=== PATIENT | female | born 1930 | race Caucasian/White ===

== ENCOUNTER 2018-03-13 04:53 | Inpatient (IN) | payer OTHER ==
[2018-02-27 08:11] VITALS: Ht 152.4 cm; Wt 84.6 kg
[2018-02-27 10:00] LABS: BASO % 0.4 %; BASO ABS # 0.03 K/uL (0-0.2); EOS % 2.1 %; EOS ABS # 0.17 K/uL (0-0.5); HEMATOCRIT 43.3 % (37-47); HEMOGLOBIN 14.8 g/dL (12.0-16.0); IG# 0.02 K/uL (0.00-0.02); LYMPH % 43.9 %; LYMPH ABS # 3.48 K/uL (1.2-3.4); MEAN CELL VOLUME 92.5 fL (80-100); MEAN CORPUSCULAR HEMOGLOBIN 31.6 pg (25-34); MEAN CORPUSCULAR HGB CONC 34.2 g/dl (32-36); MEAN PLATELET VOLUME 10.2 fL (7.4-10.4); MONO % 11.2 %; MONO ABS # 0.89 K/uL (0.11-0.59); NEUT % 42.1 %; NEUT ABS # 3.33 K/uL (1.4-6.5); PLATELET COUNT 207 K/uL (130-400); RED CELL DISTRIBUTION WIDTH SD 46.9 fL (36.4-46.3); WHITE BLOOD COUNT 7.92 K/uL (4.8-10.8)
[2018-02-27 10:09] LABS: ALBUMIN 4.1 gm/dl (3.4-5.0); CALCIUM 9.8 mg/dl (8.5-10.1); CREATININE 0.86 mg/dl (0.60-1.20); POTASSIUM 4.7 mmol/L (3.5-5.1)
[2018-02-27 10:29] LABS: HEMOGLOBIN A1C 6.2 % (4.5-5.6)
[2018-03-13] VITALS (10 sets, daily range): BP systolic 100–177; BP diastolic 59–94; PULSE 72–79; TEMP 36.4–36.7; O2SAT 94–98
[~2018-03-13] VITALS: Ht 152.4 cm; Wt 84.6 kg
[~2018-03-13 04:53] MED LIST: ASCA500 PO; CELE1CAP30 PO; CHOL2000 PO; CRS/10 PO; HYDR-3419 PO; LISI-787 PO; MAGN125C; MISCTAB78 PO; MULT-1027 PO; OMEG10007 PO; PRLSR20 PO; [UNRECOGNIZED DRUG - CODE] TOP
[2018-03-13] MEDS ORDERED: ROPIVACAINE 5MG/ML 30 ML 150 MG, BUPIVACAINE 0.5% MPF INJ 30 ML, EpINEphrine HCL INJ 0.... INFIL SCH ×8 (06:00)
[2018-03-13] MEDS: TRANEXAMIC ACID INJ 1,000 MG x 2 Bags IV SCH ×4 (06:00→06:30)
[2018-03-13] MEDS ORDERED: CEFAZOLIN 2000MG IV PUSH 15 ML IV SCH ×2 (06:00)
[2018-03-13] MEDS ORDERED: LACTATED RINGER'S 1000ML 500 ML IV SCH (06:00)
[2018-03-13] MEDS ORDERED: BUPIVACAINE 0.25% 30 ML VIAL ONE (06:20)
[2018-03-13] MEDS ORDERED: BACITRACIN 50000 UNIT VIAL ONE (06:27)
[2018-03-13] MEDS ORDERED: ORTHO JOINT ANESTHETIC ONE (06:27)
[2018-03-13] MEDS ORDERED: POVIDONE-IODINE OP SOLN 30 ML BTL ONE (06:27)
[2018-03-13] MEDS ORDERED: PHENYLEPHRINE 100MCG/ML 5ML SYR IV PRN (06:30)
[2018-03-13] MEDS ORDERED: FENTANYL CITRATE INJ 50 MCG/1 ML 2 ML VIAL IV PRN (06:30)
[2018-03-13] MEDS ORDERED: EpHEDrine SULFATE INJ 50 MG/ML AMP IV PRN (06:30)
[2018-03-13] MEDS ORDERED: ATROPINE SULFATE 0.1 MG/ML 5ML SYR IV PRN (06:30)
[2018-03-13] MEDS ORDERED: HYDROmorphone INJ 2 MG/ML SYR/VIAL IV PRN (06:30)
[2018-03-13] MEDS ORDERED: ONDANSETRON INJ 2 MG/ML 2 ML VIAL IV PRN ×2 (06:30→08:45)
[2018-03-13] MEDS ORDERED: FENTANYL CITRATE INJ 50 MCG/1 ML 2 ML VIAL ONE (06:43)
[2018-03-13] MEDS ORDERED: MIDAZOLAM HCL 1 MG/ML 2ML VIAL ONE (06:43)
[2018-03-13] MEDS ORDERED: PROPOFOL IV EMULSION 10 MG/ML 20 ML VIAL ONE ×2 (06:44→07:59)
[2018-03-13] MEDS ORDERED: ROPIVACAINE 0.5% 5 MG/ML 30 ML VIAL ONE (06:46)
--- NOTE | 2018-03-13 06:59 | History and Physical ---
History & Physical Date March 13, 2018. Chief Complaint Patient presents as a 88-year-old white female 5 185 pounds with complaints of ongoing pain through to her right knee she has been no response to conservative therapy including physical therapy anti-inflammatories relative rest injections viscous supplementations a presents for right total knee arthroplasty History of Present Illness The patient is a 88 year old female with complaints of ongoing pain interval to her right knee she presents with inability to ambulate pain awake pain at night pain with ambulating no braces help no injections given her any relief Additional History Hepatic Disease: No Endocrine Disorder: No Kidney Disease: No Hypertension: Yes Heart Disease: No Bleeding Tendencies: No Infectious Diseases: No Allergies Coded Allergies: Adhesives (Verified Allergy, Unknown, SKIN IRRITATION - REDNESS/ITCHY, 03/13) Latex1 -Allergic Contact Dermititis (Verified Allergy, Unknown, SKIN IRRITATION - REDNESS AND ITCHY, 03/13/18) Home Medications Scheduled Ascorbic Acid (Vitamin C), 1,000 MG PO QAM Celecoxib (Celecoxib), 1 CAP PO QAM Cholecalciferol (Vitamin D3), 1 CAP PO BID Fish Oil (Clawson-3), 1 CAP PO QAM Lisinopril/Hctz (Zestoretic 20MG/12.5MG), 1 TAB PO QAM Magnesium Citrate (mg Suppleme (Magnesium Citrate), Unknown Dose HS Misc Natural Products (Osteo Bi-Flex Advanced Do), 1 TAB PO BID Multiple Vitamin (Multi Vitamin), 1 TAB PO QAM Omeprazole (Prilosec), 20 MG PO QAM Rosuvastatin Calcium (Crestor), 10 MG PO Q2D Scheduled PRN Hydrocodon/Acetaminophen 5MG/300MG (Vicodin (5MG/300MG)), 1 TAB PO UD PRN for Pain Powders (Lady Anti Monkey Butt), 1 APPLN TOP UD PRN for PRN Physical Examination Skin: warm/dry, no rash Eyes: normal inspection, EOMI, sclerae normal ENT: normal ENT inspection, pharynx normal Head: normocephalic, atraumatic Neck: supple, no adenopathy, trachea midline Respiratory/Chest: lungs clear, normal breath sounds, no respiratory distress Cardiovascular: regular rate, rhythm, no edema, no murmur Abdomen / GI: normal bowel sounds, non tender Back: normal inspection Extremities: normal inspection, normal range of motion, + pertinent finding ( Patient has a medial joint line pain tenderness crepitation varus alignment range of motion 0-110 there are palpable osteophytes of the medial aspect of the knee moderate effusion is noted no ligamentous instability is noted) Neurologic/Psych: no motor/sensory deficits, alert, normal reflexes, oriented x 3 Diagnosis 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
--- NOTE | 2018-03-13 07:00 | History & Physical Bridge Note ---
H&P Re-Evaluation Bridge Note: I have examined the patient, reviewed the History & Physical and in the interval since the performance of the History & Physical I have noted the following changes of clinical significance: No changes noted
--- NOTE | 2018-03-13 07:55 | [facility] Post Operative Brief Note ---
Immediate Operative Summary Operative Date March 13, 2018. Pre-Operative Diagnosis Severe End-Stage Tricompartmental Degenerative Joint Disease Right Knee Post-Operative Diagnosis Severe End-Stage Tricompartmental Degenerative Joint Disease Right Knee Procedure(s) Performed Right Total Knee Arthroplasty utilizing Meza nephNomi journey 2 patient match total knee arthroplasty size 4 femur 3 tibia 13 polyethylene [address] Mo Education Administrative Assistant Surgeon(s) QUINTIN Craft Estimated Blood Loss 5 ml Findings Consistent with Post-Op Diagnosis Specimens A. Right Knee Bone and Tissue Anesthesia Type MAC Spinal Regional Complication(s) none Disposition Disposition: Recovery Room / PACU
--- NOTE | 2018-03-13 07:56 | [facility] Operative Report ---
Operative Report Operative Date March 13, 2018. Pre-Operative Diagnosis Severe End-Stage Tricompartmental Degenerative Joint Disease Right Knee Post-Operative Diagnosis Severe End-Stage Tricompartmental Degenerative Joint Disease Right Knee Procedure(s) Performed Right Total Knee Arthroplasty utilizing Wiziva [facility] 2 patient match total knee arthroplasty size 4 femur 3 tibia 13 polyethylene [address] Mo Tentmaker Surgeon(s) QUINTIN Craft Estimated Blood Loss 5 ml Findings *Surgery findings included subchondral sclerosis cystic changes and osteophytes bone to bone eburnated bone varus alignment salute ligament ligamentous laxity with end-stage DJD Specimens A. Right Knee Bone and Tissue Anesthesia Type MAC Spinal Regional Complication(s) none Disposition Recovery Room / PACU Indications Patient presents after failed attempts at conservative management and physical therapy anti-inflammatories relative rest activity modification corticosteroid injections time bracing no no relief patient presents for total knee arthroplasty Description of Procedure After proper prepping and draping of the Right lower extremity anterior midline incision was made over the region of the extensor extensor mechanism after meticulous hemostasis was obtained and maintained in subcutaneous tissues a medial parapatellar incision was made The patella was subluxed lateralward the medial lateral gutter were cleaned from any hypertrophic synovitis and scar tissue of the distal femoral block was placed and the distal femoral osteotomy cut was made subsequently the chamfers anterior and posterior osteotomy cuts were made utilizing the 4-in-1 block the tibia was subsequently subluxed anteriorward medial and ateral meniscal remnants were excised in their entirety remnants of the anterior and posterior cruciate ligaments were excised in their entirety excellent exposure of the proximal tibia was obtained the tibial osteotomy guide was placed on the proximal tibial osteotomy cut was made once again the knee was irrigated with copious amounts of sterile saline solution the patella was subsequently everted lateralward thickened scar tissue around the patella was removed the patella was subsequently cut utilizing a freehand technique and was drilled prepared for final preparation and placement of patella socially flexion-extension gaps were checked and the equal and symmetric trials were placed to the appropriate femoral and tibial trials with poly-spacer being placed for equal flexion and extension gaps and full range of motion including extension to 0 and flexion to 140 the trial components after having been taken to recovery range of motion was subsequently removed meticulous hemostasis was obtained and maintained subsequently a knee block injection of joint cocktail including ropivacaine 0.5% 150 mg. Bupivacaine 0.5 % epinephrine 1-200,030 mL's toradol 30 mg dexamethasone 4 mg ketamine 10 mg clonidine 100 micrograms normal saline solution 30 mg was infiltrated into the soft tissues of the posterior knee medial lateral gutters and periosteal synovium special attention was paid to protect neurovascular structures at all times subsequently trial components having been removed the knee was irrigated with sterile saline solution. debris was removed the proximal tibia was subsequently prepared and was made ready for the placement of the tibial component tibial component was also cemented and tamped into position the femoral component was subsequently placed and cemented in the position the patellar component was subsequently cemented in position because hemostasis once again obtained and maintained wound having been thoroughly irrigated with debridement and debridement lavage was performed as well as a medial parapatellar incision closed with #1 Vicryl in interrupted fashion subcutaneous was closed with #2 Vicryl skin was closed with skin clips. PA-C was necessary for prepping and drapping as well as wound closure of deep fascia Sub cutaneous tissue and skin and was necessary for the case. A sterile compressive dressing was placed patient was taken to recovery in stable condition of report dictated by Chepe I attest to the content of the Intraoperative Record and any orders documented therein. Any exceptions are noted below. I attest to the content of the Intraoperative Record and any orders documented therein. Any exceptions are noted below.
[2018-03-13] MEDS ORDERED: EpHEDrine SULFATE 50MG/5ML SYR ONE (07:59)
[2018-03-13] MEDS ORDERED: PHENYLEPHRINE 100MCG/ML 5ML SYR ONE (07:59)
[2018-03-13] MEDS ORDERED: KETOROLAC TROMETHAMINE 15 MG/ML VIAL IV. PRN (08:45)
[2018-03-13] MEDS ORDERED: ALUMINUM/MAGNESIUM/SIMETH (MAALOX MAX) 30 ML UDC PO PRN (08:45)
[2018-03-13] MEDS ORDERED: TRAMADOL HCL 50 MG TAB PO PRN (08:45)
[2018-03-13] MEDS ORDERED: MAGNESIUM HYDROXIDE SUSP 30 ML UDC PO PRN (08:45)
[2018-03-13] MEDS ORDERED: BISACODYL 10 MG SUPP PR PRN (08:45)
[2018-03-13] MEDS ORDERED: MoRPHine SULFATE 4 MG/ML 1 ML CARP\\VIAL IV PRN (08:45)
[2018-03-13] MEDS ORDERED: SOD PHOSPHATE/SOD BIPHOSPHATE ENEMA 132 ML BTL PR PRN (08:45)
--- NOTE | 2018-03-13 09:10 | DIAGNOSTIC IMAGING REPORT ---
R KNEE 1 OR 2 VIEWS ROUTINE CLINICAL HISTORY: Right knee osteoarthritis. COMPARISON: None FINDINGS: Alignment of the total right knee arthroplasty is anatomic. There is no fracture or unexpected radiopaque foreign body. Surgical drains are in place. IMPRESSION: Expected findings following total right knee arthroplasty. Electronically signed by: Rene Haddad M.D. 03/13/2018 9:09 AM Dictated Date/Time: 03/13/2018 9:07 AM
--- NOTE | 2018-03-13 09:41 | Anesthesiology Progress Note ---
Anesthesia Post Op Note Date & Time March 13, 2018 at 09:41 Vital Signs Pain Intensity: 0 Vital Signs Past 12 Hours Date Time Temp Pulse Resp B/P (MAP) Pulse Ox O2 Delivery O2 Flow Rate FiO2 03/13/18 09:30 75 20 121/66 98 Nasal Cannula 3 03/13/18 09:15 75 20 115/59 99 Nasal Cannula 3 03/13/18 09:05 36.1 80 18 113/63 96 Nasal Cannula 3 03/13/18 08:55 77 18 112/56 97 Nasal Cannula 3 03/13/18 08:45 82 18 101/60 95 Oxymask 3 03/13/18 08:35 36.0 88 16 103/56 99 Oxymask 5 03/13/18 06:01 36.4 79 20 177/94 95 Room Air Notes Mental Status: alert / awake / arousable, participated in evaluation Pt Amnestic to Procedure: Yes Nausea / Vomiting: adequately controlled Pain: adequately controlled Airway Patency, RR, SpO2: stable & adequate BP & HR: stable & adequate Hydration State: stable & adequate Neuraxial Anesthesia: was administered, sensory block is resolving Anesthetic Complications: no major complications apparent
[2018-03-13] MEDS ORDERED: MoRPHine SULFATE 10 MG/ML CARP/VIAL IV PRN (10:30)
[2018-03-13] MEDS: PANTOprazole SOD 40 MG TAB PO SCH (10:30)
[2018-03-13] MEDS: D5W AND 1/2NSS + 20MEQ KCL 1,000 ML IV SCH ×2 (10:41→21:32)
[2018-03-13] MEDS: MULTIVITAMIN TAB PO SCH (10:58)
[2018-03-13] MEDS: LISINOPRIL/HCTZ 20/12.5MG TAB PO SCH (11:00)
[2018-03-13] MEDS: CEFAZOLIN IV 2,000 MG in SYRINGE 0 ML IV SCH ×2 (15:01→22:41)
[2018-03-13] MEDS: HYDROCODONE/ACETAMIN 5/325MG TAB PO PRN (21:30)
[2018-03-13] MEDS: SENNA 8.6 MG TAB PO SCH (21:32)
[2018-03-13] MEDS: CHOLECALCIFEROL 1000 INTER.UNIT TAB PO SCH (21:33)
[2018-03-13] MEDS: DOCUSATE SODIUM 100 MG CAP PO SCH (21:33)
[2018-03-13] MEDS: ASPIRIN 81 MG ECTAB PO SCH (21:34)
[2018-03-14 03:27] VITALS: BP 108/67; PULSE 64; TEMP 36.7; O2SAT 94
[2018-03-14 08:08] VITALS: BP 126/70; PULSE 65; TEMP 36.7; O2SAT 96
[2018-03-14 08:08] LABS: HEMOGLOBIN 11.1 g/dL (12.0-16.0); MEAN CELL VOLUME 91.7 fL (80-100); MEAN CORPUSCULAR HEMOGLOBIN 30.8 pg (25-34); MEAN CORPUSCULAR HGB CONC 33.6 g/dl (32-36); MEAN PLATELET VOLUME 9.8 fL (7.4-10.4); PLATELET COUNT 165 K/uL (130-400); RED CELL DISTRIBUTION WIDTH CV 13.9 % (11.5-14.5); RED CELL DISTRIBUTION WIDTH SD 46.3 fL (36.4-46.3); WHITE BLOOD COUNT 10.37 K/uL (4.8-10.8)
--- NOTE | 2018-03-14 08:08 | Orthopedic Progress Note ---
Orthopedic Progress Note Date of Service March 14, 2018. Subjective Post OP Day: 1 Reports: feeling well, Denies: chest pain, SOB, nausea / vomiting, light headedness, calf pain Objective calves soft nontender, N/V intact, capillary refill less than 2 sec., dressing C /D/I, A&O x3, toes mobile, hemovac drainage (250/75 cc per shift) Date Time Temp Pulse Resp B/P (MAP) Pulse Ox O2 Delivery O2 Flow Rate FiO2 03/14/18 03:27 36.7 64 14 108/67 (81) 94 Room Air 03/14/18 00:00 Room Air 03/13/18 23:01 36.7 72 16 110/69 (83) 95 Room Air 03/13/18 21:05 36.7 79 18 110/73 (85) 94 Room Air 03/13/18 16:00 96 Room Air 03/13/18 15:30 Nasal Cannula 2.0 03/13/18 15:20 36.7 77 18 135/75 (95) 97 Nasal Cannula 2.0 03/13/18 12:50 72 18 117/70 (86) 98 03/13/18 11:50 74 18 108/67 (81) 97 03/13/18 10:56 78 18 100/59 (73) 97 03/13/18 10:18 74 18 124/70 (88) 98 2.0 03/13/18 09:50 36.5 78 18 116/70 (85) 97 Nasal Cannula 2.0 03/13/18 09:50 Nasal Cannula 2.0 03/13/18 09:50 36.5 78 18 116/70 (85) 97 Nasal Cannula 2.0 03/13/18 09:50 97 Nasal Cannula 2.0 03/13/18 09:30 75 20 121/66 98 Nasal Cannula 3 03/13/18 09:15 75 20 115/59 99 Nasal Cannula 3 03/13/18 09:05 36.1 80 18 113/63 96 Nasal Cannula 3 03/13/18 08:55 77 18 112/56 97 Nasal Cannula 3 03/13/18 08:45 82 18 101/60 95 Oxymask 3 03/13/18 08:35 36.0 88 16 103/56 99 Oxymask 5 Laboratory Results 24 Hours: Test 03/14/18 07:50 Assessment & Plan Assessment: POD#1 SP RIGHT TKA Plan: PT/OT DVT PROPH- ASA 81MG BID PAIN MANAGEMENT- NORCO, TRAMADOL DC PLANNING- PATIENT REQUESTING REFERRAL HSNV, SNF BACK UP. HOPEFUL TRANSFER TOMORROW IF STABLE. Inhouse Planning Pain Management: Celebrex, Ultram, [place] DVT Prophylaxis: TEDs, SCDs, ASA Discharge Planning Discharge Planning: rehab hospital
[2018-03-14] MEDS: HYDROCODONE/ACETAMIN 5/325MG TAB PO PRN ×2 (08:29→21:05)
[2018-03-14] MEDS: LISINOPRIL/HCTZ 20/12.5MG TAB PO SCH (08:30)
[2018-03-14] MEDS: CHOLECALCIFEROL 1000 INTER.UNIT TAB PO SCH ×2 (08:30→21:00)
[2018-03-14] MEDS: PANTOprazole SOD 40 MG TAB PO SCH (08:30)
[2018-03-14] MEDS: ASPIRIN 81 MG ECTAB PO SCH ×2 (08:30→21:06)
[2018-03-14] MEDS: MULTIVITAMIN TAB PO SCH (08:30)
[2018-03-14] MEDS: DOCUSATE SODIUM 100 MG CAP PO SCH ×2 (08:30→21:04)
[2018-03-14 08:41] LABS: CALCIUM 8.1 mg/dl (8.5-10.1); CREATININE 0.79 mg/dl (0.60-1.20); POTASSIUM 4.4 mmol/L (3.5-5.1)
[2018-03-14] MEDS: D5W AND 1/2NSS + 20MEQ KCL 1,000 ML IV SCH (09:30)
[2018-03-14 13:30] VITALS: BP 136/72; PULSE 73; TEMP 36.5; O2SAT 98
[2018-03-14 14:45] VITALS: BP 118/68; PULSE 71; TEMP 36.8; O2SAT 97
[2018-03-14] MEDS: CeleBREX 200 MG CAP PO SCH (21:05)
[2018-03-14] MEDS: SENNA 8.6 MG TAB PO SCH (21:06)
[2018-03-14] MEDS: ROSUVASTATIN CALCIUM 10 MG TAB PO SCH (21:06)
[2018-03-14 22:57] VITALS: BP 153/77; PULSE 73; TEMP 36.8; O2SAT 97
[2018-03-14 23:40] VITALS: O2SAT 97
[2018-03-15] MEDS: HYDROCODONE/ACETAMIN 5/325MG TAB PO PRN ×3 (06:09→20:56)
--- NOTE | 2018-03-15 06:48 | Orthopedic Progress Note ---
Orthopedic Progress Note Date of Service March 15, 2018. Subjective Post OP Day: 2 Reports: feeling well, nausea / vomiting, pain controlled w PO medications, Denies: complaints, chest pain, SOB, light headedness, calf pain Additional Notes: c/o episodes of nausea that seems related to her pain Objective calves soft nontender, N/V intact, capillary refill less than 2 sec., dressing C /D/I, A&O x3, toes mobile Date Time Temp Pulse Resp B/P (MAP) Pulse Ox O2 Delivery O2 Flow Rate FiO2 03/14/18 23:40 97 Room Air 2.0 03/14/18 22:57 36.8 73 14 153/77 (102) 97 Room Air 03/14/18 16:15 Room Air 03/14/18 14:45 36.8 71 18 118/68 (85) 97 Room Air 03/14/18 13:30 36.5 73 16 136/72 (93) 98 Room Air 03/14/18 08:08 36.7 65 16 126/70 (88) 96 Room Air 03/14/18 08:00 Room Air Laboratory Results 24 Hours: Test 03/14/18 07:50 Hematocrit 33.0 % Hemoglobin 11.1 g/dL Prothromb Time International Ratio 1.0 Prothrombin Time 10.7 SECONDS Assessment & Plan Assessment: POD#2 SP RIGHT TKA Plan: PT/OT DVT PROPH- ASA 81MG BID PAIN MANAGEMENT- [facility]CO, TRAMADOL DC PLANNING- PATIENT REQUESTING REFERRAL HSNV, SNF BACK UP. will check later today with CM to check approval Discharge Planning Discharge Planning: rehab hospital, uncertain DVT Prophylaxis: TEDs, SCDs, ASA Therapy: Physical Therapy
--- NOTE | 2018-03-15 06:50 | Discharge Instructions ---
Discharge Instructions Date of Service March 15, 2018. Admission Reason for Admission: Right Knee Osteoarthritis Discharge Discharge Diagnosis / Problem: right total knee replacement Discharge Goals Goal(s): Decrease discomfort, Improve function, Increase independence Activity Recommendations Activity Level: Up Ad Jaclyn Therapies: Physical Therapy, Weight Bearing Status Weightbearing Status: Right weightbearing (as tolerated) . Additional Information Patient informed of condition: Yes Advance Directives: No DNR: No Level of Care: Acute Rehab Communicable Disease: No Prognosis: Stable Instructions / Follow-Up Instructions / Follow-Up ACTIVITY RECOMMENDATIONS: SELF CARE INSTRUCTIONS AFTER TOTAL KNEE REPLACEMENT A. You may need to continue a physical therapy program after discharge from the hospital. There are several options available to you. Your doctor will assist you in selecting the best one for you. 1. An out-patient facility 2 to 3 times a week for therapy or home therapy. 2. Continue working on all exercises taught to you in the hospital. Your goals should be to increase bending of your knee to 90 degrees and beyond and to fully straighten your knee. B. You may progress at your own pace from walking with a walker or crutches to a cane; then to no assistive devices. C. Make walking a part of your daily routine. Be up as much as comfortable with rest periods throughout the day. Rest with leg elevation is very important. Use the ice wrap frequently for the first 3-4 weeks. D. There are no restrictions on activities. You may ride in a car, shop, participate in drag out man and all social activities. E. Wear the long elastic stockings (DEVEN hose) 20 hours a day for 2 weeks after surgery. They can be removed several times a day for laundering and for a bath. F. You may shower, no tub baths until cleared by your doctor. SPECIAL CARE INSTRUCTIONS: VERY IMPORTANT TO READ AND REVIEW A. There are a few signs you need to watch for after you are home. Call [facility] if you notice any of the followin. Increased severe knee pain. Some pain is expected especially when you exercise. 2. Increased swelling in your leg or knee; pain or swelling of the calf muscle in either lower leg. 3. Any fluid drainage from the incision. 4. Shortness of breath or chest pain. B. Please call [facility] at if you have any concerns or questions about your operation or recovery. The doctor or his nurse will return your call promptly. C. You must take antibiotics before dental work, bladder, bowel or other surgery. Your doctor will provide you with a permanent care to carry describing this precaution. IMPORTANT: * REMEMBER TO TAKE ASPIRIN, 81 MG, TWICE DAILY FOR 4 WEEKS UNLESS OTHERWISE DIRECTED. THIS IS YOUR BLOOD THINNER. * HIGH RISK PATIENTS MAY BE PRESCRIBED A STRONGER BLOOD THINNER. THIS WILL BE PROVIDED AT DISCHARGE. * CALL IF INCREASED PAIN, REDNESS, DRAINAGE OR FEVER GREATER THAT 101. * WEAR DEVEN HOSE 20 HOURS PER DAY FOR 2 WEEKS. * DERMABOND Prineo- This is a mesh tape dressing that is covered with glue. It should remain in place until the incision is properly healed, usually 10-14 days. This dressing is designed to naturally slough off. You may trim the excess mesh tape as it peels off. Incision may be briefly wet in a shower. Dry immediately by blotting with a clean, dry towel. Do not bath or swim until instructed by your doctor. Do not scratch, rub, or pick at the dressing. Do not apply any topical ointments or lotions until dressing is completely removed and/or instructed by your doctor. There may be a small piece of suture material at one end of your incision. Do not pull or trim this. If it is bothersome or catching on clothing, you may cover it with a band-aid. FOLLOW UP VISIT: If appointment is not already scheduled: Please call [facility] to make a follow-up appointment for 2 weeks after your surgery at . Current Hospital Diet Patient's current hospital diet: Regular Diet Discharge Diet Recommended Diet: Regular Diet Procedures Procedures Performed: Right Total Knee Arthroplasty utilizing Meza nephLiveroof [place] journey 2 patient match total knee arthroplasty size 4 femur 3 tibia 13 polyethylene 32 oval patella Pending Studies Studies pending at discharge: no Laboratory Results Hemoglobin A1c Test 02/27/18 09:10 Range/Units Estimated Average Glucose 131 mg/dl Hemoglobin A1c 6.2 H 4.5-5.6 % Medical Emergencies . Who to Call and When: Medical Emergencies: If at any time you feel your situation is an emergency, please call 911 immediately. . Non-Emergent Contact Non-Emergency issues call your: Primary Care Provider, Surgeon . . "Provider Documentation" section prepared by Chalino Fenton. . Core Measure Problem Core Measures: None [place] Drug Monitoring Program Search Results: patient reviewed within database, no issues identified
[2018-03-15] MEDS ORDERED: CLB200 PO (06:55)
[2018-03-15] MEDS ORDERED: ASPI-320 PO (06:55)
[2018-03-15] MEDS ORDERED: ONDA-170 PO (06:55)
[2018-03-15] MEDS ORDERED: HYDR-5688 PO (06:55)
[2018-03-15] MEDS ORDERED: CLC100 PO (06:55)
[2018-03-15 07:34] VITALS: BP 123/73; PULSE 67; TEMP 36.8; O2SAT 95
[2018-03-15] MEDS: CeleBREX 200 MG CAP PO SCH ×2 (08:47→20:56)
[2018-03-15] MEDS: ASPIRIN 81 MG ECTAB PO SCH ×2 (08:47→20:56)
[2018-03-15] MEDS: LISINOPRIL/HCTZ 20/12.5MG TAB PO SCH (08:47)
[2018-03-15] MEDS: DOCUSATE SODIUM 100 MG CAP PO SCH ×2 (09:31→20:56)
[2018-03-15] MEDS: PANTOprazole SOD 40 MG TAB PO SCH (09:31)
[2018-03-15] MEDS: MULTIVITAMIN TAB PO SCH (09:31)
[2018-03-15] MEDS: CHOLECALCIFEROL 1000 INTER.UNIT TAB PO SCH ×2 (09:59→20:56)
[2018-03-15 14:40] VITALS: BP 154/78; PULSE 69
[2018-03-15 15:41] VITALS: BP 144/63; PULSE 76; TEMP 36.7; O2SAT 94
[2018-03-15] MEDS: SENNA 8.6 MG TAB PO SCH (20:56)
[2018-03-15 23:54] VITALS: BP 145/67; PULSE 71; TEMP 36.6; O2SAT 93
--- NOTE | 2018-03-16 08:31 | Orthopedic Progress Note ---
Orthopedic Progress Note Date of Service March 16, 2018. Subjective Post OP Day: 3 Reports: feeling well, Denies: chest pain, SOB, nausea / vomiting, light headedness, calf pain Objective calves soft nontender, N/V intact, capillary refill less than 2 sec., dressing C /D/I, A&O x3, toes mobile Date Time Temp Pulse Resp B/P (MAP) Pulse Ox O2 Delivery O2 Flow Rate FiO2 03/16/18 00:15 Room Air 03/15/18 23:54 36.6 71 15 145/67 (93) 93 Room Air 03/15/18 16:15 Room Air 03/15/18 15:41 36.7 76 18 144/63 (90) 94 Room Air 03/15/18 14:40 69 Assessment & Plan Assessment: POD#3 SP RIGHT TKA Plan: PT/OT DVT PROPH- ASA 81MG BID PAIN MANAGEMENT- [facility], TRAMADOL DC PLANNING- PATIENT REQUESTING REFERRAL HSNV, SNF BACK UP. will check later today with CM to check approval STABLE FOR TRANSFER TODAY. AWAITING ON BED AVAILABILITY AND INSURANCE APPROVAL. Inhouse Planning Pain Management: Celebrex, Ultram, [place] DVT Prophylaxis: TEDs, SCDs, ASA Discharge Planning Discharge Planning: rehab hospital, uncertain DVT Prophylaxis: TEDs, SCDs, ASA Therapy: Physical Therapy
[2018-03-16] MEDS: HYDROCODONE/ACETAMIN 5/325MG TAB PO PRN (09:15)
[2018-03-16] MEDS: CHOLECALCIFEROL 1000 INTER.UNIT TAB PO SCH ×2 (09:16→20:34)
[2018-03-16] MEDS: PANTOprazole SOD 40 MG TAB PO SCH (09:16)
[2018-03-16] MEDS: MULTIVITAMIN TAB PO SCH (09:16)
[2018-03-16] MEDS: DOCUSATE SODIUM 100 MG CAP PO SCH ×2 (09:16→20:34)
[2018-03-16] MEDS: ASPIRIN 81 MG ECTAB PO SCH ×2 (09:17→20:34)
[2018-03-16 09:19] VITALS: BP 116/67; PULSE 80; TEMP 36.7; O2SAT 93
[2018-03-16] MEDS: LISINOPRIL/HCTZ 20/12.5MG TAB PO SCH (09:20)
[2018-03-16] MEDS: CeleBREX 200 MG CAP PO SCH ×2 (09:21→20:33)
[2018-03-16 09:53] VITALS: BP 158/82; PULSE 78
[2018-03-16 15:27] VITALS: BP 103/63; PULSE 80; TEMP 36.7; O2SAT 92
[2018-03-16] MEDS: ROSUVASTATIN CALCIUM 10 MG TAB PO SCH (20:34)
[2018-03-16] MEDS: SENNA 8.6 MG TAB PO SCH (20:34)
[2018-03-16 23:37] VITALS: BP 95/55; PULSE 72; TEMP 36.7; O2SAT 93
[2018-03-17 07:02] VITALS: BP 119/71; PULSE 75; TEMP 36.9; O2SAT 95
[2018-03-17] MEDS: HYDROCODONE/ACETAMIN 5/325MG TAB PO PRN ×2 (08:37→23:32)
[2018-03-17] MEDS: CeleBREX 200 MG CAP PO SCH ×2 (08:38→20:39)
[2018-03-17] MEDS: ASPIRIN 81 MG ECTAB PO SCH ×2 (08:38→20:39)
[2018-03-17] MEDS: DOCUSATE SODIUM 100 MG CAP PO SCH ×2 (08:38→20:38)
--- NOTE | 2018-03-17 08:38 | Orthopedic Progress Note ---
Orthopedic Progress Note Date of Service March 17, 2018. Subjective Post OP Day: 4 Reports: feeling well, Denies: chest pain, SOB, nausea / vomiting, light headedness, calf pain Objective calves soft nontender, N/V intact, capillary refill less than 2 sec., incision C /D/I, A&O x3, toes mobile Date Time Temp Pulse Resp B/P (MAP) Pulse Ox O2 Delivery O2 Flow Rate FiO2 03/17/18 07:02 36.9 75 18 119/71 (87) 95 Room Air 03/16/18 23:37 36.7 72 16 95/55 (68) 93 Room Air 03/16/18 20:06 Room Air 03/16/18 15:27 36.7 80 18 103/63 (76) 92 Room Air 03/16/18 15:15 Room Air 03/16/18 09:53 78 03/16/18 09:19 36.7 80 16 116/67 (83) 93 Room Air Assessment & Plan Assessment: POD#4 SP RIGHT TKA Plan: PT/OT DVT PROPH- ASA 81MG BID PAIN MANAGEMENT- NORCO, TRAMADOL DC PLANNING- PATIENT REQUESTING REFERRAL HSNV, SNF BACK UP. will check later today with CM to check approval STABLE FOR TRANSFER TODAY. AWAITING ON BED AVAILABILITY AND INSURANCE APPROVAL. Inhouse Planning Pain Management: Celebrex, Ultram, [place] DVT Prophylaxis: TEDs, SCDs, ASA Discharge Planning Discharge Planning: rehab hospital, uncertain DVT Prophylaxis: TEDs, SCDs, ASA Therapy: Physical Therapy
[2018-03-17] MEDS: PANTOprazole SOD 40 MG TAB PO SCH (08:39)
[2018-03-17] MEDS: MULTIVITAMIN TAB PO SCH (08:39)
[2018-03-17] MEDS: CHOLECALCIFEROL 1000 INTER.UNIT TAB PO SCH ×2 (08:39→20:38)
[2018-03-17 08:40] VITALS: BP 106/61; PULSE 81
[2018-03-17] MEDS: LISINOPRIL/HCTZ 20/12.5MG TAB PO SCH (08:42)
[2018-03-17 15:07] VITALS: BP 112/64; PULSE 80; TEMP 36.6; O2SAT 96
[2018-03-17] MEDS: SENNA 8.6 MG TAB PO SCH (20:38)
[2018-03-17 23:20] VITALS: BP 109/63; PULSE 73; TEMP 36.9; O2SAT 95
[2018-03-18 06:50] VITALS: BP 116/69; PULSE 70; TEMP 36.8; O2SAT 96
--- NOTE | 2018-03-18 07:33 | Orthopedic Progress Note ---
Orthopedic Progress Note Date of Service March 18, 2018. Subjective Post OP Day: 5 Reports: feeling well, Denies: chest pain, SOB, nausea / vomiting, light headedness, calf pain Objective calves soft nontender, N/V intact, capillary refill less than 2 sec., incision C /D/I, A&O x3, toes mobile Date Time Temp Pulse Resp B/P (MAP) Pulse Ox O2 Delivery O2 Flow Rate FiO2 03/18/18 06:50 36.8 70 16 116/69 (85) 96 Room Air 03/17/18 23:23 Room Air 03/17/18 23:20 36.9 73 16 109/63 (78) 95 Room Air 03/17/18 15:20 Room Air 03/17/18 15:07 36.6 80 18 112/64 (80) 96 Room Air 03/17/18 08:40 81 106/61 (76) 03/17/18 07:45 Room Air Assessment & Plan Assessment: POD#5 SP RIGHT TKA Plan: PT/OT DVT PROPH- ASA 81MG BID PAIN MANAGEMENT- NORCO, TRAMADOL DC PLANNING- PATIENT REQUESTING REFERRAL HSNV, SNF BACK UP. will check later today with CM to check approval STABLE FOR TRANSFER TODAY. AWAITING ON BED AVAILABILITY AND INSURANCE APPROVAL. IF STILL NO BEDS, MAY NEED TO CONSIDER OTHER OPTIONS. OTHER FACILITIES VS . Inhouse Planning Pain Management: Celebrex, Ultram, [place] DVT Prophylaxis: TEDs, SCDs, ASA Discharge Planning Discharge Planning: rehab hospital, uncertain DVT Prophylaxis: TEDs, SCDs, ASA Therapy: Physical Therapy
[2018-03-18] MEDS: CeleBREX 200 MG CAP PO SCH (08:09)
[2018-03-18] MEDS: ASPIRIN 81 MG ECTAB PO SCH (08:09)
[2018-03-18] MEDS: DOCUSATE SODIUM 100 MG CAP PO SCH (08:09)
[2018-03-18] MEDS: MULTIVITAMIN TAB PO SCH (08:09)
[2018-03-18] MEDS: CHOLECALCIFEROL 1000 INTER.UNIT TAB PO SCH (08:10)
[2018-03-18] MEDS: LISINOPRIL/HCTZ 20/12.5MG TAB PO SCH (08:10)
[2018-03-18] MEDS: HYDROCODONE/ACETAMIN 5/325MG TAB PO PRN (08:13)
[2018-03-18 09:46] VITALS: BP 116/69; PULSE 70; TEMP 36.8; O2SAT 96
--- NOTE | 2018-03-18 15:54 | Discharge Summary ---
Orthopedic Discharge Summary Admission Date/Reason March 13, 2018 at 06:40 Right Knee Osteoarthritis. Discharge Date/Disposition March 16, 2018 [facility] facility Diagnosis Principal Diagnosis: right knee osteoarthritis Procedure(s) Performed Right Total Knee Arthroplasty utilizing Derrick rendon 2 patient match total knee arthroplasty size 4 femur 3 tibia 13 polyethylene 32 oval patella Consultations NONE Medication Reconciliation New Medications: Ondansetron Hcl (Zofran) 8 Mg Tab 8 MG PO Q8 PRN for Nausea, #20 TAB Aspirin (Aspirin EC Low Dose) 81 Mg Ectab 81 MG PO BID for 30 Days, #60 TAB Celecoxib (Celebrex) 200 Mg Cap 200 MG PO BID for 30 Days, #60 CAP Docusate Sodium (Docusate Sodium) 100 Mg Cap 100 MG PO BID for 10 Days, #20 CAP Hydrocodone/Acetaminophen 5MG/325MG ([place] 5MG/325MG) Tab 1-2 TAB PO Q4H PRN for Pain, #60 TAB PRN PAIN Continued Medications: Ascorbic Acid (Vitamin C) 500 Mg Tab 1000 MG PO QAM PT REPORTS TAKES CHEWABLES Cholecalciferol (Vitamin D3) 2,000 Unit Cap 1 CAP PO BID for 90 Days, #180 CAP 3 Refills Lisinopril/Hctz (Zestoretic 20MG/12.5MG) Tab 1 TAB PO QAM, TAB Magnesium Citrate (mg Suppleme (Magnesium Citrate) Unknown Strength Cap Unknown Dose HS Multiple Vitamin (Multi Vitamin) 1 Tab Tab 1 TAB PO QAM Omeprazole (Prilosec) 20 Mg Capcr 20 MG PO QAM, CAP Powders (Lady Anti Monkey Butt) 1 Pow Pow 1 APPLN TOP UD PRN for PRN Rosuvastatin Calcium (Crestor) 10 Mg Tab 10 MG PO Q2D, TAB TAKES AT HS EVERY OTHER DAY Discontinued Medications: Celecoxib (Celecoxib) 200 Mg Cap 1 CAP PO QAM Fish Oil ([place]-3) 1 Ea Cap 1 CAP PO QAM, CAP Hydrocodon/Acetaminophen 5MG/300MG (Vicodin (5MG/300MG)) 1 Tab Tab 1 TAB PO UD PRN for Pain, TAB DOSE ON PT MED LIST READS 5-325 MG Misc Natural Products (Osteo Bi-Flex Advanced Do) 1 Tab Tab 1 TAB PO BID PT MED LIST READS THIS IS WITH TUMERIC IN IT Admission Physical Exam As per Admitting History & Physical. Hospital Course Patient was a same day admission after undergoing a successful right TKA. She tolerated the procedure well. Post-operatively, her activity was progressed and well tolerated. Please refer to daily progress notes and PT notes for complete details. After exam on 03/18/18, patient felt to be stable for discharge to [facility] facility. she remained in the hospital until POD #5 due to awaiting placement. Patient will f/u in the office in 2 weeks for further evaluation including x-rays and incision check, sooner if having any issues or concerns. Below are pertinent labs/studies during their hospital stay: Last Resulted CBC 03/14/18 07:50 Last Resulted BMP 03/14/18 07:50 Last Vital Signs Documentation Date Time Temp Pulse Resp B/P (MAP) Pulse Ox O2 Delivery O2 Flow Rate FiO2 03/18/18 09:46 36.8 70 16 96 Room Air 03/18/18 06:50 116/69 (85) 03/14/18 23:40 2.0 Discharge Instructions Please refer to the electronic Patient Visit Report (Discharge Instructions) for additional information.
== END 2018-03-18 13:31 | DRG 470 ==
LOC: C.ACU 04:53 → C.3E 06:40 → ENRESERV 08:58
PROVIDERS: ADMIT Orthopaedic Surgery; ATTEND Orthopaedic Surgery
PROC: 0SRC0J9 Replacement of Right Knee Joint with Synthetic Substitute, Cemented, Open Approach (ICD-10-PCS; principal; 2018-03-13 07:00)
DX: M17.11 Unilateral primary osteoarthritis, right knee (principal); M25.761 Osteophyte, right knee; M21.161 Varus deformity, not elsewhere classified, right knee; I10 Essential (primary) hypertension; Z79.899 Other long term (current) drug therapy; Z91.040 Latex allergy status; Z91.048 Other nonmedicinal substance allergy status

== ENCOUNTER 2019-06-11 05:31 | Inpatient (IN) ==
--- NOTE | 2019-05-27 10:47 | PAT Medication Instructions ---
Medication Instructions Date of Service May 27, 2019 Home Medications ascorbic acid (vitamin C) [Vitamin C] 500 mg PO QAM celecoxib [Celebrex] 200 mg PO QAM cholecalciferol (vitamin D3) [Vitamin D3] 2,000 unit PO BID docusate sodium 100 mg PO DAILY PRN glucosamine-chondroitin [Osteo Bi-Flex] 2 tab PO BID hydrocodone-acetaminophen 2 tab PO Q6H PRN lisinopril-hydrochlorothiazide 1 tab PO QAM magnesium oxide 200 mg PO BID multivitamin 1 tab PO QAM omega 7-mpo-ntg-fish oil [Fish Oil] 1,000 cap PO QAM omeprazole 20 mg PO QAM ASK your surgeon for instructions celecoxib [Celebrex] 200 mg PO QAM STOP taking 2 weeks before surgery glucosamine-chondroitin [Osteo Bi-Flex] 2 tab PO BID omega 0-jtc-xyh-fish oil [Fish Oil] 1,000 cap PO QAM DO NOT take the morning of surgery ascorbic acid (vitamin C) [Vitamin C] 500 mg PO QAM cholecalciferol (vitamin D3) [Vitamin D3] 2,000 unit PO BID docusate sodium 100 mg PO DAILY NEEDED lisinopril-hydrochlorothiazide 1 tab PO QAM magnesium oxide 200 mg PO BID multivitamin 1 tab PO QAM Take morning of surgery With a small sip of water, OTHERWISE NOTHING TO EAT OR DRINK AFTER MIDNIGHT: omeprazole 20 mg PO QAM hydrocodone-acetaminophen 2 tab PO Q6H PRN (if needed; STOP 4 hours before surgery) Take evening before surgery cholecalciferol (vitamin D3) [Vitamin D3] 2,000 unit PO BID docusate sodium 100 mg PO DAILY NEEDED (if needed) magnesium oxide 200 mg PO BID hydrocodone-acetaminophen 2 tab PO Q6H NEEDED (if needed) Other Notes If you have any questions please call us at [phone] or [phone] or [phone] or [phone]
--- NOTE | 2019-05-27 11:43 | Anesthesiology Consultation ---
Date of Service May 27, 2019 Assessment & Plan (1) Encounter for pre-operative examination: - No previous anesthesia records re: intubation. Chart Review Chart Review: Patient seen in Pre Admission Testing Consults Requested medical (Dr. Stock (05/28)) Patient was seen by PCP's office on 05/28/19 for preoperative evaluation. Per note from that visit, "Patient is medically cleared for the proposed surgery." Teaching & Discussion Pre-Anesthesia Teaching/Discussion Notes: Instructed NPO after midnight before surgery, except medications with 15 cc of water. Medication instructions provided according to the PAT guidelines. History Surgery Operation Date: 06/11/19 07:45 Proposed Procedures p L3-L5 Decompression/Fusion Instrumental versus In Situ with Spinal Cord Monitoring - Roger Araya DO Height/Weight Height: 5 ft Weight: 79.8 kg Allergies Allergy/AdvReac Type Severity Reaction Status Date / Time adhesive Allergy Unknown SKIN Verified 03/13/18 05:44 IRRITATION - REDNESS/ITCHY Medications Home Medications Medication Instructions Recorded Confirmed Last Taken ascorbic acid (vitamin C) [Vitamin 500 mg PO QAM 05/23/19 05/23/19 Unknown C] celecoxib [Celebrex] 200 mg PO QAM 05/23/19 05/23/19 Unknown cholecalciferol (vitamin D3) 2,000 unit PO BID 05/23/19 05/23/19 Unknown [Vitamin D3] docusate sodium 100 mg PO DAILY PRN 05/23/19 05/23/19 Unknown glucosamine-chondroitin [Osteo 2 tab PO BID 05/23/19 05/23/19 Unknown Bi-Flex] hydrocodone-acetaminophen 2 tab PO Q6H PRN 05/23/19 05/23/19 Unknown lisinopril-hydrochlorothiazide 1 tab PO QAM 05/23/19 05/23/19 Unknown magnesium oxide 200 mg PO BID 05/23/19 05/23/19 Unknown multivitamin 1 tab PO QAM 05/23/19 05/23/19 Unknown omega 5-fwb-tnh-fish oil [Fish Oil] 1,000 cap PO QAM 05/23/19 05/23/19 Unknown omeprazole 20 mg PO QAM 05/23/19 05/23/19 Unknown Past Medical History Medical History Chronic back pain GERD (gastroesophageal reflux disease) Hiatal hernia History of high cholesterol CURRENTLY TAKING NO MEDS Hypertension Incontinence of urine in female Numbness and tingling of right leg D/T BACK ISSUE Obesity Scoliosis Spinal stenosis Exercise / Class Metabolic Activity III < 4 Walking/Shop/Light housework (Limited due to back pain. Able to do own ADL's and light housework. Patient is able to climb a few stairs, but has to be careful due to leg weakness. Denies CP or SOB with activity. ) Past Family History Family History Sister Family history of diabetes mellitus Mother Family history of diabetes mellitus Past Surgical History Surgical History History of left hip replacement History of total right knee replacement Hx of bilateral cataract extraction Hx of breast biopsy RIGHT Past Anesthesia History No Hx of Anesthesia Complications and No Family Hx of Anesthesia Complications History of PONV No Hx of Motion Sickness and History of PONV (Only after breast biopsy) Social History Smoking Status: Never smoker Do You Dip or Chew Tobacco: No Hx Alcohol Use: No Hx Substance Use: No Review of Systems Patient denies chest pain, shortness of breath, dyspnea on exertion, cough, wheezing, palpitations. +Joint Pain (Back, lower legs, shoulders) +Acid Reflux (mostly controlled with medications she is on) Physical Exam Vital Signs BP: 114/64 P: 72 R: 16 T: 98.0 SPO2: 96% on RA Constitutional + obese ENMT Mouth: + dentures (Full set upper and lower dentures) and + edentulous Thyromental Distance: < 3.5 Finger Breadths (3) Mallampati Class: II Neck normal visual inspection and trachea midline; neck extension not limited Respiratory normal respiratory effort Auscultation: lungs clear to auscultation bilaterally Cardiovascular Rate/Rhythm: regular rate and regular rhythm Heart Sounds: no murmur Vessels: no carotid bruit Musculoskeletal Right lower extremity swollen and nonpitting edema. Had injury ~1 month ago and was put on ABX for cellulitis afterwards by Dr. Aarya's office Neurologic moves all extremities Psychiatric Orientation: alert and oriented x 3 Testing Laboratory Results 05/27/19 12:09 05/27/19 12:09 PT 10.6 Seconds (9.0-12.0) 05/27/19 12:09 INR 1.0 (0.9-1.1) 05/27/19 12:09 APTT 24.1 Seconds (21.0-31.0) 05/27/19 12:09 Urine Color Yellow 05/27/19 12:09 Urine Appearance Clear (Clear) 05/27/19 12:09 Urine pH 5.5 (4.5-7.5) 05/27/19 12:09 Ur Specific [place] 1.024 (1.000-1.030) 05/27/19 12:09 Urine Protein Negative (Negative) 05/27/19 12:09 Urine Glucose (UA) Negative (Negative) 05/27/19 12:09 Urine Ketones Negative (Negative) 05/27/19 12:09 Urine Nitrite Negative (Negative) 05/27/19 12:09 Ur Leukocyte Esterase Negative (Negative) 05/27/19 12:09 Blood Type A Positive 05/27/19 12:09 Antibody Screen NEGATIVE 05/27/19 12:09 Electrocardiogram Date: 05/27/19 Findings: + NSR @ (71) and + no change from (02/27/18) Sinus rhythm @ 71bpm with 1st degree AV block Chest X-Ray FINDINGS: The heart is normal in size. There is aortic tortuosity/ectasia. There is no failure. There is no focal pulmonary consolidation. There are no pleural effusions. There is a suspected air filled esophagus. IMPRESSION: 1. Air-filled esophagus 2. No acute intrathoracic findings
--- NOTE | 2019-05-27 13:25 | XRay Report ---
XR chest Pre-admission PA/Lat CLINICAL HISTORY: Preoperative chest COMPARISON STUDY: No previous studies for comparison. FINDINGS: The heart is normal in size. There is aortic tortuosity/ectasia. There is no failure. There is no focal pulmonary consolidation. There are no pleural effusions. There is a suspected air filled esophagus.[ IMPRESSION: 1. Air-filled esophagus 2. No acute intrathoracic findings Electronically signed by: Logan Hodge M.D. 05/27/2019 1:23 PM
[2019-05-27 13:48] LABS: Appearance Urine Clear (Clear); Basophils # (auto) 0.04 K/uL (0-0.2); Basophils % (auto) 0.6 %; Bilirubin Urine Negative (Negative); Blood Urine Negative (Negative); Color Urine Yellow; Eosinophils # (auto) 0.09 K/uL (0-0.5); Eosinophils % (auto) 1.2 %; Glucose Urine UA Negative (Negative); Hematocrit (blood only) 43.2 % (37-47); Hemoglobin 14.5 g/dL (12.0-16.0); Immature Granulocytes # (auto) 0.02 K/uL (0.00-0.02); Immature Granulocytes % (auto) 0.3 %; Ketones Urine Negative (Negative); Leukocyte Esterase Urine Negative (Negative); Lymphocytes # (auto) 3.35 K/uL (1.2-3.4); Lymphocytes % (auto) 46.1 %; Mean Corpuscular Hgb Conc 33.6 g/dL (32-36); Mean Corpuscular Volume 92.9 fL (80-100); Mean Platelet Volume 10.5 fL (7.4-10.4); Monocytes % (auto) 8.3 %; Neutrophils # (auto) 3.16 K/uL (1.4-6.5); Neutrophils % (auto) 43.5 %; Nitrite Urine Negative (Negative); Platelet Count 231 K/uL (130-400); Protein Urine Negative (Negative); RDW Coefficient of Variation 13.9 % (11.5-14.5); RDW Standard Deviation 47.2 fL (36.4-46.3); Red Blood Count 4.65 M/uL (4.2-5.4); Specific Gravity Urine 1.024 (1.000-1.030); Urobilinogen Urine Negative (Negative); White Blood Count 7.26 K/uL (4.8-10.8); pH Urine 5.5 (4.5-7.5)
[2019-05-27 13:54] LABS: Calcium 9.6 mg/dl (8.5-10.1); Creatinine Clr Calc Pharmacy 38.6 ml/min; Est GFR (African American) 61.6; Est GFR (Non-African American) 53.2; Potassium 3.8 mmol/L (3.5-5.1)
[2019-05-27 13:56] LABS: Partial Thromboplastin Ratio 0.9; Partial Thromboplastin Time 24.1 Seconds (21.0-31.0); Prothrombin Time 10.6 Seconds (9.0-12.0)
[2019-06-11] MEDS ORDERED: ACETAMINOPHEN 500 MG TAB PO SCH (06:00)
[2019-06-11] MEDS ORDERED: GABAPENTIN 300 MG CAP PO SCH (06:00)
[2019-06-11] MEDS ORDERED: LR 15ML/HR IV SCH (06:00)
[2019-06-11] MEDS ORDERED: CEFAZOLIN 2000MG 2,000 MG/15 ML SYR IV SCH (06:00)
[2019-06-11] MEDS ORDERED: CeleBREX 200 MG CAP PO SCH (06:00)
[2019-06-11] MEDS ORDERED: DEXAMETHASONE SOD INJ 4 MG/ML VIAL ONE (06:31)
[2019-06-11] MEDS ORDERED: ROCURONIUM BROMIDE 10 MG/ML 5 ML VIAL ONE (06:31)
[2019-06-11] MEDS ORDERED: PROPOFOL IV EMULSION 10 MG/ML 20 ML VIAL IV ONE (06:31)
[2019-06-11] MEDS ORDERED: fentaNYL citrate 100 MCG/2 ML VIAL ONE ×2 (06:31)
[2019-06-11] MEDS ORDERED: LIDOCAINE HCL 2% 2 ML VIAL/AMP(20MG/ML) INFIL ONE (06:31)
[2019-06-11] MEDS ORDERED: ONDANSETRON INJ 2 MG/ML 2 ML VIAL ONE (06:31)
[2019-06-11] MEDS ORDERED: BUPIVACAINE/EPINEPHRINE 0.5% MPF 1:200,000 30 ML VIAL ONE (06:57)
[2019-06-11] MEDS ORDERED: BACITRACIN INJ 50,000 UNIT VIAL ONE (06:57)
--- NOTE | 2019-06-11 07:28 | History & Physical Bridge Note ---
Date of Service June 11, 2019 History & Physical Bridge Note I have examined the patient, reviewed the History & Physical and in the interval since the performance of the History & Physical I have noted the following changes of clinical significance: no changes noted
--- NOTE | 2019-06-11 07:30 | History & Physical Report ---
Date of Service June 11, 2019 Assessment & Plan (1) Spinal stenosis, lumbar region with neurogenic claudication: L3-L5 decompression and fusion instrumental versus in situ Present on Admission?: Yes History of Present Illness Chief Complaint: Back and leg pain Primary Care Provider: Dinora Stock MD This is an 89-year-old female who presents with chronic persistent back and leg pain after failing extensive course of nonoperative care she is here for surgical intervention. Allergies Allergy/AdvReac Type Severity Reaction Status Date / Time adhesive Allergy Mild SKIN Verified 06/11/19 06:11 IRRITATION - REDNESS/ITCHY Home Medications Home Medications Medication Instructions Recorded Confirmed Type ascorbic acid (vitamin C) [Vitamin 500 mg PO QAM 05/23/19 06/11/19 History C] celecoxib [Celebrex] 200 mg PO QAM 05/23/19 06/11/19 History cholecalciferol (vitamin D3) 2,000 unit PO DAILY 05/23/19 06/11/19 History [Vitamin D3] docusate sodium 100 mg PO DAILY PRN 05/23/19 06/11/19 History glucosamine-chondroitin [Osteo 2 tab PO BID 05/23/19 06/11/19 History Bi-Flex] hydrocodone-acetaminophen 2 tab PO Q6H PRN 05/23/19 06/11/19 History lisinopril-hydrochlorothiazide 1 tab PO QAM 05/23/19 06/11/19 History magnesium oxide 200 mg PO BID 05/23/19 06/11/19 History multivitamin 1 tab PO QAM 05/23/19 06/11/19 History omega 1-cmf-pyf-fish oil [Fish Oil] 1,000 cap PO QAM 05/23/19 06/11/19 History omeprazole 20 mg PO QAM 05/23/19 06/11/19 History Past Med/Surg History Medical History Chronic back pain GERD (gastroesophageal reflux disease) Hiatal hernia History of high cholesterol CURRENTLY TAKING NO MEDS Hypertension Incontinence of urine in female Numbness and tingling of right leg D/T BACK ISSUE Obesity Scoliosis Spinal stenosis Surgical History History of left hip replacement History of total right knee replacement Hx of bilateral cataract extraction Hx of breast biopsy RIGHT Family History Sister Family history of diabetes mellitus Mother Family history of diabetes mellitus Social History Preferred Language: Moroccan Communication Ability: Effective Beliefs That Will Affect Care: None Current Living Situation: Alone Feels Safe at Home: Yes Safety Concerns: Feels Safe At This Time Smoking Status: Never smoker Do You Dip or Chew Tobacco: No Second Hand Exposure: No Hx Alcohol Use: No Hx Substance Use: No Physical Exam Physical Exam: Patient is alert and oriented neurologically intact. Results & Data Vital Signs (Past 12 Hours) Vital Signs Temp Pulse Resp BP Pulse Ox 06/11/19 06:19 36.6 C 76 20 159/95 H 95
[2019-06-11] MEDS ORDERED: ePHEDrine sulfate 50 MG/ML AMP IV PRN (07:41)
[2019-06-11] MEDS ORDERED: ATROPINE SULFATE 0.1 MG/ML 10ML SYR IV PRN (07:41)
[2019-06-11] MEDS ORDERED: ONDANSETRON INJ 2 MG/ML 2 ML VIAL IV PRN ×2 (07:41→11:18)
[2019-06-11] MEDS ORDERED: ePHEDrine sulfate 50 MG/ML SYR ONE (08:16)
[2019-06-11] MEDS ORDERED: PHENYLEPHRINE 100MCG/ML 5ML SYR ONE (08:16)
[2019-06-11] MEDS ORDERED: FLOSEAL HEMOSTATIC MATRIX 10ML TOP ONE (08:42)
[2019-06-11] MEDS ORDERED: NEOSTIGMINE METHYLSULFATE 1 MG/ML 10ML VIAL ONE (09:29)
[2019-06-11] MEDS ORDERED: GLYCOPYRROLATE 0.2 MG/ML VIAL ONE (09:29)
--- NOTE | 2019-06-11 09:42 | Operative Report ---
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 #5 placement of peek cage 10 x 22 mm of L3-4. #6 placement of local autograft in the posterior lateral gutters. #7 placement infuse collagen sponge bone mass graft in the posterior lateral gutters and ostial amp and interbody space. Surgeon Roger Araya, DO [place] Jazmin Peacock Estimated Blood Loss 150 Findings Consistent with Post-Op Diagnosis The patient is 5 foot tall weighing 78 kg with a BMI in excess of 33. Patient's body habitus did increase technical difficulty increasing the length of the surgery by at least 25%. Specimens None Indications This is a 59-year-old female who presents with above-mentioned diagnosis after failing extensive course of nonoperative care like to undergo the above- mentioned procedure. Description of Procedure Patient was met with identified and informed consent obtained. She was then taken to the operative suite underwent intubation placed in a prone position the Anthony table on top of the Roel frame. All bony prominences well-padded eyes inspected to ensure no external pressure placed upon the peer at this point lumbar spine was prepped and draped in a normal sterile fashion. Sharp dissection with the assistance of Bovie cautery was then performed down to and exposing the lamina transverse processes of L3-L4-L5 bilaterally. From a caudal to cephalad fashion complete laminectomy of L4 L3 and partial laminectomy of L2 was performed including bilateral medial facetectomies foraminotomies addressing severe spinal stenosis. Pedicle screws were then placed in L3-L4-L5 bilaterally with assistance of fluoroscopy the process thai placed. By way of a transforaminal approach on the right complete discectomy was performed in plate graded to subcortical being bone and a 10 x 22 mm peek cage filled with osteo- amp bone graft tapped in position. The rods were then locked in final position bilaterally. The transverse processes of L3-L4-L5 bur to subcortical bleeding bone. Infuse collagen sponge mass graft local autograft placed in the posterior lateral gutters. 15 round DENIS drain inserted. Incision was then closed with 1 Vicryl in the fascia 2-0 Vicryl substantially and 4 Monocryl for final closure. Steri-Strip sterile dressing placed. Patient will continue PACU stable disc. Please note Jazmin Peacock present throughout the entire procedure involved the patient positioning complex portions of the surgery and final skin closure. La misha spinal cord monitoring was utilized that the procedure no changes noted. I attest to the content of the Intraoperative Record and any orders documented therein. Any exceptions are noted below.
--- NOTE | 2019-06-11 09:48 | Fluoroscopy Report ---
LUMBAR SPINE, INTRAOPERATIVE FLUOROSCOPY HISTORY: L3 L5 decompression and fusion. FLUOROSCOPY TIME: 15 seconds. FINDINGS: Intraoperative fluoroscopy was provided for the lumbar spine. 2. fluoroscopic spot images were obtained. Posterior decompression and fusion from L3 through L5 with pedicle screws and rods. The hardware appears intact. IMPRESSION: Fluoroscopy provided for a L3-L5 posterior decompression and fusion. Electronically signed by: Mehrdad Munoz M.D. 06/11/2019 9:47 AM
[2019-06-11] MEDS: fentaNYL citrate 100 MCG/2 ML VIAL IV PRN ×2 (09:58→10:05)
[2019-06-11] MEDS: HYDROmorphone INJ 1 MG/ML SYRINGE IV PRN ×4 (10:20→10:38)
--- NOTE | 2019-06-11 11:09 | Anesthesiology Progress Note ---
Date of Service June 11, 2019 Anesthesia Post Procedure Vital Signs Vital Signs: Temp Pulse Pulse Resp BP Pulse Ox 06/11/19 10:50 37.0 C 64 15 131/64 98 06/11/19 10:40 60 15 136/66 99 06/11/19 10:30 63 16 130/70 97 06/11/19 10:20 36.9 C 62 15 150/72 H 99 06/11/19 10:10 36.9 C 65 13 150/72 H 99 06/11/19 10:00 36.9 C 68 18 137/69 98 06/11/19 09:50 36.9 C 89 16 161/78 H 99 06/11/19 06:19 36.6 C 76 20 159/95 H 95 Pain Intensity Lower Back: Pain Intensity: 4 Transfer of Care Handoff Completed per policy Notes Mental Status: alert / awake / arousable and participated in evaluation Patient Amnestic to Procedure: Yes Nausea / Vomiting: adequately controlled Pain: adequately controlled Airway Patency, RR, SpO2: stable & adequate BP & HR: stable & adequate Hydration State: stable & adequate Anesthetic Complications: no major complications apparent and Pt Satisfied with anesthetic care
[2019-06-11] MEDS ORDERED: METOCLOPRAMIDE HCL INJ 5 MG/ML 2 ML VIAL IV PRN (11:18)
[2019-06-11] MEDS ORDERED: FAMOTIDINE 20 MG TAB PO PRN (11:18)
[2019-06-11] MEDS ORDERED: DO NOT ADMINISTER PNEUMOCOCCAL VACCINE PRN (11:18)
[2019-06-11] MEDS ORDERED: PROMETHAZINE HCL 12.5 MG in SODIUM CHLORIDE 0.9% 50 ML IV PRN (11:18)
[2019-06-11] MEDS ORDERED: ACETAMINOPHEN 1,000 MG/100 ML VIAL IV PRN (11:18)
[2019-06-11] MEDS ORDERED: ACETAMINOPHEN 500 MG TAB PO PRN (11:18)
[2019-06-11] MEDS ORDERED: ONDANSETRON 4 MG TAB PO PRN (11:18)
[2019-06-11] MEDS ORDERED: DO NOT ADMINISTER FLU VACCINE PRN (11:18)
[2019-06-11] MEDS ORDERED: HYDROmorphone INJ 0.5 MG/0.5 ML SYR IV PRN (11:18)
[2019-06-11] MEDS ORDERED: MAGNESIUM HYDROXIDE SUSP 30 ML UDC PO PRN (11:18)
[2019-06-11] MEDS ORDERED: SOD PHOSPHATE/SOD BIPHOSPHATE ENEMA 132 ML BTL PR PRN (11:18)
[2019-06-11] MEDS ORDERED: ALUMINUM/MAGNESIUM SUSP 30 ML UDC PO PRN (11:18)
[2019-06-11] MEDS ORDERED: LORazepam 0.5 MG TAB PO PRN (11:18)
[2019-06-11] MEDS ORDERED: TRAMADOL HCL 50 MG TABLET PO PRN (11:18)
[2019-06-11] MEDS ORDERED: DOCUSATE SODIUM 100 MG CAP PO PRN (11:18)
[2019-06-11] MEDS ORDERED: LORazepam 0.5 MG/1 ML VIAL IV PRN (11:18)
[2019-06-11] MEDS ORDERED: BISACODYL 10 MG SUPP PR PRN (11:18)
[2019-06-11] MEDS: SODIUM CHLORIDE 0.9% 1000ML 1,000 ML IV SCH ×2 (11:38→19:38)
[2019-06-11] MEDS: CEFAZOLIN 2000MG 2,000 MG/15 ML SYR IV SCH ×2 (15:40→23:12)
[2019-06-11] MEDS: HYDROCODONE/ACETAMOPHEN 5/325MG TAB PO PRN (19:38)
[2019-06-11] MEDS: DOCUSATE SODIUM/SENNA 50/8.6MG TAB PO SCH (20:39)
[2019-06-11] MEDS: MAGNESIUM OXIDE 400 MG TAB PO SCH (20:39)
--- NOTE | 2019-06-11 20:54 | Consultation ---
Date of Consultation June 11, 2019 Assessment & Plan (1) Spinal stenosis, lumbar region with neurogenic claudication: Doing well postoperatively. (2) Hypertension: Hemodynamically stable postoperatively. Continue lisinopril / HCTZ. (3) GERD (gastroesophageal reflux disease): Continue PPI. (4) DVT prophylaxis: Per Orthopedics protocol. (5) Encounter for consultation: Thank you for this consultation. We will follow the patient with you during their hospital stay. My cell # is [phone]. You can reach a member of the [facility] Medicine Team 04/06 via pager @ [phone]. History of Present Illness Reason for Consultation: medical management Attending Physician: Roger Araya DO History of Present Illness 89-year-old female with history of hypertension and other problems. Followed by Dr. Stock in [place] for Primary Care. Underwent lumbar decompression/fusion earlier today with Dr. Araya. Doing well postoperatively. No chest pain, cough, SOB, nausea, vomiting. Pain well-controlled. Allergies Allergy/AdvReac Type Severity Reaction Status Date / Time adhesive Allergy Mild SKIN Verified 06/11/19 06:11 IRRITATION - REDNESS/ITCHY Home Medications Home Medications Medication Instructions Recorded Confirmed Type ascorbic acid (vitamin C) [Vitamin 500 mg PO QAM 05/23/19 06/11/19 History C] celecoxib [Celebrex] 200 mg PO QAM 05/23/19 06/11/19 History cholecalciferol (vitamin D3) 2,000 unit PO DAILY 05/23/19 06/11/19 History [Vitamin D3] docusate sodium 100 mg PO DAILY PRN 05/23/19 06/11/19 History glucosamine-chondroitin [Osteo 2 tab PO BID 05/23/19 06/11/19 History Bi-Flex] hydrocodone-acetaminophen 2 tab PO Q6H PRN 05/23/19 06/11/19 History lisinopril-hydrochlorothiazide 1 tab PO QAM 05/23/19 06/11/19 History magnesium oxide 200 mg PO BID 05/23/19 06/11/19 History multivitamin 1 tab PO QAM 05/23/19 06/11/19 History omega 7-lio-wlp-fish oil [Fish Oil] 1,000 cap PO QAM 05/23/19 06/11/19 History omeprazole 20 mg PO QAM 05/23/19 06/11/19 History Patient History Medical History Chronic back pain GERD (gastroesophageal reflux disease) Hiatal hernia History of high cholesterol CURRENTLY TAKING NO MEDS Hypertension Incontinence of urine in female Numbness and tingling of right leg D/T BACK ISSUE Obesity Scoliosis Spinal stenosis Surgical History Hx of breast biopsy RIGHT History of left hip replacement History of total right knee replacement Hx of bilateral cataract extraction Family History Sister Family history of diabetes mellitus Mother Family history of diabetes mellitus Social History Preferred Language: Mohawk Communication Ability: Effective Beliefs That Will Affect Care: None Current Living Situation: Alone Feels Safe at Home: Yes Safety Concerns: Feels Safe At This Time Smoking Status: Never smoker Do You Dip or Chew Tobacco: No Second Hand Exposure: No Hx Alcohol Use: No Hx Substance Use: No Review of Systems Constitutional: + weight loss (few pounds due to diet change); no fever Respiratory: no cough and no dyspnea Cardiovascular: no chest pain Gastrointestinal: no nausea, no vomiting, no diarrhea/loose stools and no blood in stools Genitourinary: no dysuria and no hematuria Endocrine: no polydipsia and no polyuria Hematologic / Lymphatic: no easy bleeding and no easy bruising Physical Exam Constitutional: WD/WN, vitals as above no acute distress Eyes: PERRL, conjunctivae normal, anicteric sclerae ENMT: external ear and nose normal, oropharynx normal upper and lower dentrues Neck: trachea midline, no thyromegaly Respiratory: normal respiratory effort, lungs clear to auscultation Cardiovascular: Rate/Rhythm: regular rate Heart Sounds: + murmur (II/ sys murmur at base); no gallop and no cardiac rub Vessels: no JVD Extremities: normal capillary refill and + edema (trace pretibial); no calf tenderness Gastrointestinal (Abdomen): normal bowel sounds, soft, nontender, no hepatosplenomegaly Musculoskeletal: Head/Neck/Chest: neck supple Extremities: strength 5/5 throughout; no cyanosis and no clubbing TEDS applied Skin: no rashes, warm and dry Neurologic: PERRL, EOMI no facial palsy no dysarthria or aphasia patellar DTR's 2/2 bilat Psychiatric: Orientation: alert and oriented x 3 Affect: euthymic affect Genitourinary: Aaron cath Lymphatic: no cervical lymphadenopathy Results & Data Vital Signs (Past 12 Hours) Vital Signs Temp Pulse Pulse Resp BP Pulse Ox 06/11/19 19:03 36.5 C 75 18 127/74 95 06/11/19 16:42 36.5 C 70 18 103/65 90 06/11/19 13:53 36.8 C 67 16 116/63 97 06/11/19 13:06 36.6 C 61 18 107/62 97 06/11/19 12:09 36.4 C L 63 18 118/67 99 06/11/19 11:38 36.4 C L 61 18 109/67 99 06/11/19 11:11 36.4 C L 60 18 126/71 98 06/11/19 10:50 37.0 C 64 15 131/64 98 06/11/19 10:40 60 15 136/66 99 06/11/19 10:30 63 16 130/70 97 06/11/19 10:20 36.9 C 62 15 150/72 H 99 06/11/19 10:10 36.9 C 65 13 150/72 H 99 06/11/19 10:00 36.9 C 68 18 137/69 98 06/11/19 09:50 36.9 C 89 16 161/78 H 99 Laboratory Results Laboratory Results - last 24 hr 06/11/19 06:14 Blood Type A Positive Antibody Screen NEGATIVE Crossmatch See Detail Preoperative labs done on 05/27/2019: Hemoglobin 14.5, white count 7260, platelet count 231,000. PT/INR, PTT normal. Chemistry profile showed normal electrolytes, BUN 20, creatinine 0.96, random glucose 143. Chest x-ray showed air-filled esophagus, no acute findings. EKG reviewed and demonstrated normal sinus rhythm at 70/minute with first-degree AV block, intraventricular conduction delay, no acute ST or T wave abnormalities.
[2019-06-12] MEDS: SODIUM CHLORIDE 0.9% 1000ML 1,000 ML IV SCH (02:05)
[2019-06-12] MEDS: POLYETHYLENE (MIRALAX) 17 GM PACK PO SCH ×4 (05:52→23:11)
[2019-06-12] MEDS: HYDROCODONE/ACETAMOPHEN 5/325MG TAB PO PRN ×2 (07:50→16:25)
[2019-06-12 08:05] LABS: Basophils # (auto) 0.01 K/uL (0-0.2); Basophils % (auto) 0.1 %; Eosinophils # (auto) 0.02 K/uL (0-0.5); Eosinophils % (auto) 0.2 %; Hematocrit (blood only) 33.1 % (37-47); Hemoglobin 11.1 g/dL (12.0-16.0); Immature Granulocytes # (auto) 0.03 K/uL (0.00-0.02); Immature Granulocytes % (auto) 0.3 %; Lymphocytes # (auto) 3.11 K/uL (1.2-3.4); Lymphocytes % (auto) 31.2 %; Mean Corpuscular Hgb Conc 33.5 g/dL (32-36); Mean Corpuscular Volume 93.8 fL (80-100); Monocytes # (auto) 0.99 K/uL (0.11-0.59); Monocytes % (auto) 9.9 %; Neutrophils % (auto) 58.3 %; Platelet Count 166 K/uL (130-400); RDW Coefficient of Variation 13.8 % (11.5-14.5); RDW Standard Deviation 47.5 fL (36.4-46.3); Red Blood Count 3.53 M/uL (4.2-5.4); White Blood Count 9.96 K/uL (4.8-10.8)
--- NOTE | 2019-06-12 08:39 | Orthopedic Progress Note ---
Date of Service June 12, 2019 Assessment & Plan (1) Spinal stenosis, lumbar region with neurogenic claudication: This time we will continue physical therapy monitor her DENIS output anticipate discharge home this weekend possibly with home health. Present on Admission?: Yes Subjective Patient's back pain is controlled leg symptoms improved. Physical Exam Physical Exam: Patient is in the chair at the bedside. She is good strength testing. Appears comfortable. Results & Data Vital Signs (Past 12 Hours) Vital Signs Temp Pulse Resp BP Pulse Ox 06/12/19 07:37 36.5 C 71 16 112/69 95 06/12/19 03:30 36.6 C 70 16 109/66 97 06/11/19 23:57 36.5 C 65 16 110/65 95
[2019-06-12 08:40] LABS: BUN Creatinine Ratio 17.6 (10-20); Calcium 8.7 mg/dl (8.5-10.1); Creatinine Clr Calc Pharmacy 45.2 ml/min; Est GFR (African American) 75.7; Est GFR (Non-African American) 65.3; Potassium 3.8 mmol/L (3.5-5.1)
[2019-06-12] MEDS: MULTIVITAMIN TAB PO SCH (08:51)
[2019-06-12] MEDS: MAGNESIUM OXIDE 400 MG TAB PO SCH ×2 (08:51→19:55)
[2019-06-12] MEDS: ASCORBIC ACID 500 MG TAB PO SCH (08:52)
[2019-06-12] MEDS: CeleBREX 200 MG CAP PO SCH (08:52)
[2019-06-12] MEDS: LISINOPRIL/HCTZ 20/12.5MG 1 TAB TAB PO SCH (08:52)
[2019-06-12] MEDS: CHOLECALCIFEROL 1,000 UNITS TAB PO SCH (08:52)
[2019-06-12] MEDS ORDERED: PANTOprazole 40 MG TAB PO SCH (09:00)
--- NOTE | 2019-06-12 09:03 | Hospitalist Progress Note ---
Date of Service June 12, 2019 Assessment & Plan (1) Spinal stenosis, lumbar region with neurogenic claudication: L3-L5 lumbar decompression/fusion by Dr. Araya POD #1 EBL: 150 mL; DENIS drain 426 mL Tolerated procedure well Pain/wound management per Ortho Activity/therapies as directed by Ortho DVT prophylaxis SCD/teds Encourage incentive spirometry Monitor H&H - 11.1/33.1 today (14.5/43.2 preoperatively) (2) Hypertension: Blood pressure stable Continue lisinopril / HCTZ. (3) GERD (gastroesophageal reflux disease): Continue PPI -patient requesting change in time to 6 AM Add ranitidine as needed (4) DVT prophylaxis: SCDs/teds per orthopedics Disposition: Per primary Follow-up: PCP Dr. Dinora Stock of [facility] upon discharge Patient was seen and examined in collaboration with Dr. Posada, please see addendum Thank you for this consultation. We will follow the patient with you during their hospital stay. You can reach a member of the [facility] Hospitalist Team 04/06 via pager @ [phone]. Supervising Physician Co-Signing Physician Notes HISTORY: Patient interviewed and examined in her room around 12:10 Care coordinated with Lana Richards PA-C. Please refer to her documentation for patient's history. Experiencing typical GERD symptoms this morning. Otherwise doing well except for moderate postop pain. Aaron cath removed. EXAM: General- no distress Lungs- clear to auscultation; no respiratory distress Cardiovascular- RRR; II/VU sys murmur at base; no gallop; no JVD; trace pretibial edema Abdomen- + bowel sounds, soft, nontender Extremities- no cyanosis; no calf tenderness Neuro- alert, oriented Skin- warm & dry DATA: Hgb 11.1. Creatinine 0.81. Other lab studies as noted. ASSESSMENT AND PLAN: Doing well postoperatively. Continue lisinopril / HCTZ for hypertension. Continue PPI for GERD. Please refer to QUINTIN Richards's documentation for discussion of other issues. Subjective Patient was seen and examined in room 319. Follow-up lumbar decompression fusion postop day #[address] Araya. She is sitting up in bedside chair just recently ate all of her breakfast. Overall feels well. Complains of some epigastric burning this morning secondary to hiatal hernia and reflux which improved with Maalox. She complains of increased incisional back discomfort and stiffness but denies radicular symptoms. She denies fever, chills, sweats, lightheadedness, dizziness, chest pain, shortness breath, nausea, vomiting, abdominal pain, diarrhea. She is passing flatus. She elicits approximately 1 year ago she had TKA and had postop constipation. Her appetite is good and she is drinking liquids. Review of Systems Review of Systems: As noted per HPI, 10 systems reviewed and negative unless noted above. Physical Exam Physical Exam: Gen: WD/WN, elderly, female, very pleasant, conversing easily, NAD, A&O x3 HEENT: Normocephalic, atraumatic, conjunctivae moist, sclerae anicteric, mucous membranes moist. Lung: Clear to Auscultation bilaterally, no wheezes/rales/rhonchi Heart: Regular rate, regular rhythm, 1/6 AZIZA noted RUSB, no rubs, or gallops Abdomen: Soft, NT, ND +BS x 4 Extremities: Trace bilateral lower extremity edema, no erythema, warmth, negative Homans Skin: Warm, no rash, negative turgor. Results & Data Vital Signs (Past 12 Hours) Vital Signs Temp Pulse Resp BP Pulse Ox 06/12/19 07:37 36.5 C 71 16 112/69 95 06/12/19 03:30 36.6 C 70 16 109/66 97 06/11/19 23:57 36.5 C 65 16 110/65 95 Laboratory Results Short CBC 06/12/19 Range/Units 07:43 WBC 9.96 (4.8-10.8) K/uL Hgb 11.1 L (12.0-16.0) g/dL Hct 33.1 L (37-47) % Plt Count 166 (130-400) K/uL BMP 06/12/19 07:43 Sodium 140 Potassium 3.8 Chloride 106 Carbon Dioxide 29 BUN 14 Creatinine 0.81 Glucose 129 H Calcium 8.7 Medications Administered Hydrocodone Bitart/Acetaminophen ([place] 5/325) 1 - 2 tab PO Q4H PRN PRN Reason: Moderate-Severe Pain Stop: 06/25/19 11:17 Last Admin: 06/12/19 07:50 Dose: 1 tab Documented by: [id number] Admin: 06/11/19 19:38 Dose: 1 tab Documented by: [id number] Al Hydrox/Mg Hydrox/Simethicone (Maalox) 30 ml PO Q6H PRN PRN Reason: Dyspepsia Stop: 07/11/19 11:17 Last Admin: 06/11/19 23:14 Dose: 30 ml Documented by: [id number] Ascorbic Acid (Vitamin C) [facility] [place] Stop: 07/12/19 08:59 Last Admin: 06/12/19 08:52 Dose: 500 mg Documented by: [id number] Celecoxib (Celebrex) 200 [facility] [place] Stop: 07/12/19 08:59 Last Admin: 06/12/19 08:52 Dose: 200 mg Documented by: [id number] Lisinopril/HCTZ (Prinzide 20/12.5mg) 1 [facility] [place] Stop: 07/12/19 08:59 Last Admin: 06/12/19 08:52 Dose: 1 tab Documented by: [id number] Magnesium Oxide (Mag-Ox) 200 mg PO BID [facility] Stop: 07/11/19 20:59 Last Admin: 06/12/19 08:51 Dose: 200 mg Documented by: [id number] Admin: 06/11/19 20:39 Dose: 200 mg Documented by: [id number] Multivitamins (Multivitamin Tab) 1 [facility] [place] Stop: 07/12/19 08:59 Last Admin: 06/12/19 08:51 Dose: 1 tab Documented by: [id number] Pantoprazole Sodium (Protonix) 40 mg PO [facility]; Protocol Stop: 07/12/19 08:59 Last Admin: 06/12/19 07:50 Dose: 40 mg Documented by: [id number] Polyethylene Glycol (Miralax Powder Packet) 17 gm PO Q6 [facility] Stop: 07/12/19 05:59 Last Admin: 06/12/19 05:52 Dose: 17 gm Documented by: [id number] Senna/Docusate Sodium (Senokot S) 2 tab PO HS [facility] Stop: 07/11/19 20:59 Last Admin: 06/11/19 20:39 Dose: 2 tab Documented by: [id number] Vitamin D (Vitamin D3) 2,000 units PO DAILY [facility] Stop: 07/12/19 08:59 Last Admin: 06/12/19 08:52 Dose: 2,000 units Documented by: [id number] Discontinued Medications Acetaminophen (Tylenol) 1,000 mg PO PREOP [facility] Stop: 06/11/19 18:00 Last Admin: 06/11/19 06:56 Dose: 1,000 mg Documented by: [id number] Bacitracin (Bacitracin) Confirm Administered Dose 50,000 units .ROUTE .STK-MED ONE Stop: 06/11/19 06:58 Last Admin: 06/11/19 08:44 Dose: 50,000 units Documented by: [id number] Bupivacaine HCl/Epinephrine Bitart (Sensorcaine/Epinephrine 0.5% Mpf 1:200,000) Confirm Administered Dose 30 ml .ROUTE .STK-MED ONE Stop: 06/11/19 06:58 Last Admin: 06/11/19 08:43 Dose: 30 ml Documented by: [id number] Celecoxib (Celebrex) 200 mg PO PREOP [facility] Stop: 06/11/19 18:00 Last Admin: 06/11/19 06:56 Dose: 200 mg Documented by: [id number] Fentanyl Citrate (Fentanyl Citrate) 50 mcg IV Q5M PRN PRN Reason: PACU Use Only-Pain Stop: 06/11/19 12:42 Last Admin: 06/11/19 10:05 Dose: 100 mcg Documented by: [id number] Admin: 06/11/19 09:58 Dose: 50 mcg Documented by: [id number] Gabapentin (Neurontin) 300 mg PO PREOP [facility] Stop: 06/11/19 18:00 Last Admin: 06/11/19 06:56 Dose: 300 mg Documented by: [id number] Hydromorphone HCl (Dilaudid) 0.25 mg IV Q5M PRN PRN Reason: PACU Use Only-Pain Stop: 06/11/19 12:42 Last Admin: 06/11/19 10:38 Dose: 0.25 mg Documented by: [id number] Admin: 06/11/19 10:33 Dose: 0.25 mg Documented by: [id number] Admin: 06/11/19 10:28 Dose: 0.25 mg Documented by: [id number] Admin: 06/11/19 10:20 Dose: 0.25 mg Documented by: [id number] Lactated Ringer's (Lr) 1,000 mls @ 15 mls/hr IV .Q24H [facility] Stop: 06/12/19 05:59 Last Infusion: 06/11/19 07:42 Dose: 0 mls/hr Documented by: [id number] Admin: 06/11/19 06:47 Dose: 15 mls/hr Documented by: [id number] Cefazolin Sodium (Ancef 2000mg) 2,000 mg in 15 mls @ 3.75 mls/min IV PREOP [facility] Stop: 06/11/19 18:00 Last Admin: 06/11/19 07:42 Dose: 3.75 mls/min Documented by: [id number] Cefazolin Sodium (Ancef 2000mg) 2,000 mg in 15 mls @ 3.75 mls/min IV Q8H [facility]; Protocol Stop: 06/11/19 23:48 Last Admin: 06/11/19 23:12 Dose: 3.75 mls/min Documented by: [id number] Admin: 06/11/19 15:40 Dose: 3.75 mls/min Documented by: [id number] Sodium Chloride (Nss 1000ml) 1,000 mls @ 150 mls/hr IV .Q6H40M [facility] Stop: 07/11/19 11:17 Last Admin: 06/12/19 02:05 Dose: Not Given Documented by: [id number] Infusion: 06/12/19 02:05 Dose: 0 mls/hr Documented by: [id number] Admin: 06/11/19 19:38 Dose: 150 mls/hr Documented by: [id number] Infusion: 06/11/19 18:19 Dose: 150 mls/hr Documented by: [id number] Admin: 06/11/19 11:38 Dose: 150 mls/hr Documented by: [id number] Miscellaneous (Floseal Hemostatic Matrix 10ml) 10 ml TOP ONCE ONE Stop: 06/11/19 08:43 Last Admin: 06/11/19 09:34 Dose: 17 ml Documented by: [id number]
[2019-06-12] MEDS ORDERED: COUGH DROP (SUGAR FREE) LOZ 24 LOZ/1 BOX BUCCAL ONE (09:41)
[2019-06-12] MEDS: DOCUSATE SODIUM/SENNA 50/8.6MG TAB PO SCH (19:55)
[2019-06-13] MEDS: HYDROCODONE/ACETAMOPHEN 5/325MG TAB PO PRN ×3 (06:05→21:13)
[2019-06-13] MEDS: POLYETHYLENE (MIRALAX) 17 GM PACK PO SCH ×3 (06:05→18:30)
[2019-06-13] MEDS: PANTOprazole 40 MG TAB PO SCH (06:05)
[2019-06-13] MEDS: ASCORBIC ACID 500 MG TAB PO SCH (07:57)
[2019-06-13] MEDS: MULTIVITAMIN TAB PO SCH (07:57)
[2019-06-13] MEDS: MAGNESIUM OXIDE 400 MG TAB PO SCH ×2 (07:57→20:59)
[2019-06-13] MEDS: CHOLECALCIFEROL 1,000 UNITS TAB PO SCH (07:57)
[2019-06-13] MEDS: CeleBREX 200 MG CAP PO SCH (07:58)
[2019-06-13] MEDS: LISINOPRIL/HCTZ 20/12.5MG 1 TAB TAB PO SCH (07:58)
--- NOTE | 2019-06-13 09:46 | Hospitalist Progress Note ---
Date of Service June 13, 2019 Assessment & Plan (1) Spinal stenosis, lumbar region with neurogenic claudication: L3-L5 lumbar decompression/fusion by Dr. Araya POD #2 EBL: 150 mL; DENIS drain 630 mL Tolerated procedure well Post operative constipation: on miralax q6hr, senna S 2 at HS, encourage ambulation, good bowel sounds Pain/wound management per Ortho Activity/therapies as directed by Ortho DVT prophylaxis SCD/teds Encourage incentive spirometry Monitor H&H - 11.1/33.1 today (14.5/43.2 preoperatively) (2) Hypertension: Blood pressure stable Continue lisinopril / HCTZ. (3) GERD (gastroesophageal reflux disease): Continue PPI -patient requesting change in time to 6 AM Add ranitidine as needed (4) DVT prophylaxis: SCDs/teds per orthopedics Disposition: Per primary Follow-up: PCP Dr. Dinora Stock of [facility] upon discharge Patient was seen and examined in collaboration with Dr. Posada, please see addendum Thank you for this consultation. We will follow the patient with you during their hospital stay. You can reach a member of the [facility] Hospitalist Team 04/06 via pager @ [phone]. Supervising Physician Co-Signing Physician Notes HISTORY: Patient interviewed and examined in her room around 10:10 Care coordinated with Lana Richards PA-C. Please refer to her documentation for patient's history. Doing well. No BM yet, but passing flatus EXAM: General- no distress Lungs- clear to auscultation; no respiratory distress Cardiovascular- RRR; II/VU sys murmur at base; no gallop; no JVD; trace pretibial edema Abdomen- + bowel sounds, soft, nontender Extremities- no cyanosis; no calf tenderness; TEDS applied Neuro- alert, oriented Skin- warm & dry DATA: No new labs. ASSESSMENT AND PLAN: Doing well postoperatively. Continue lisinopril / HCTZ for hypertension. Continue PPI for GERD. Bowel regimen per protocol. Please refer to QUINTIN Richards's documentation for discussion of other issues. Subjective Patient was seen and examined in room 319. Follow-up lumbar decompression fusion postop day #[address] Araya. She is sitting up in bedside chair. Overall feels well this morning. Complains of mild low back stiffness. Denies f/c/s, chest pain, sob, n/v/d, abdominal pain. +abd bloating, passing flatus. No BM in 4 days. Tolerating diet, but states, "not eating as much." Ambulating hallways and participating in therapy. Offers no new concerns or complaints. Review of Systems Review of Systems: As noted per HPI, 10 systems reviewed and negative unless noted above. Physical Exam Physical Exam: Gen: WD/WN, elderly, female, very pleasant, sitting in bedside chair, conversing easily, NAD, A&O x3 HEENT: Normocephalic, atraumatic, conjunctivae moist, sclerae anicteric, mucous membranes moist. Lung: Clear to Auscultation bilaterally, no wheezes/rales/rhonchi Heart: Regular rate, regular rhythm, 1/6 AZIZA noted RUSB, no rubs, or gallops Abdomen: Soft, NT, ND +BS x 4 Extremities: Trace bilateral lower extremity edema, no erythema, warmth, negative Homans, b/l teds Skin: Warm, no rash, negative turgor. Results & Data Vital Signs (Past 12 Hours) Vital Signs Temp Pulse Resp BP Pulse Ox 06/13/19 07:49 36.8 C 76 16 111/67 93 06/12/19 23:17 36.3 C L 75 16 145/74 H 96 Medications Administered Hydrocodone Bitart/Acetaminophen ([place] 5/325) 1 - 2 tab PO Q4H PRN PRN Reason: Moderate-Severe Pain Stop: 06/25/19 11:17 Last Admin: 06/13/19 06:05 Dose: 1 tab Documented by: [id number] Admin: 06/12/19 16:25 Dose: 1 tab Documented by: [id number] Admin: 06/12/19 07:50 Dose: 1 tab Documented by: [id number] Admin: 06/11/19 19:38 Dose: 1 tab Documented by: [id number] Al Hydrox/Mg Hydrox/Simethicone (Maalox) 30 ml PO Q6H PRN PRN Reason: Dyspepsia Stop: 07/11/19 11:17 Last Admin: 06/11/19 23:14 Dose: 30 ml Documented by: [id number] Ascorbic [facility] (Vitamin C) [facility] Stop: 07/12/19 08:59 Last Admin: 06/13/19 07:57 Dose: 500 mg Documented by: [id number] Admin: 06/12/19 08:52 Dose: 500 mg Documented by: [id number] Celecoxib (Celebrex) 200 mg PO QAM [facility] Stop: 07/12/19 08:59 Last Admin: 06/13/19 07:58 Dose: 200 mg Documented by: [id number] Admin: 06/12/19 08:52 Dose: 200 mg Documented by: [id number] Lisinopril/HCTZ (Prinzide 20/12.5mg) 1 [facility] Stop: 07/12/19 08:59 Last Admin: 06/13/19 07:58 Dose: 1 tab Documented by: [id number] Admin: 06/12/19 08:52 Dose: 1 tab Documented by: [id number] Magnesium Hydroxide (Milk Of Magnesia) 30 ml PO DAILY PRN PRN Reason: Constipation Stop: 07/11/19 11:17 Last Admin: 06/12/19 17:41 Dose: 30 ml Documented by: [id number] Magnesium Oxide (Mag-Ox) 200 mg PO BID [facility] Stop: 07/11/19 20:59 Last Admin: 06/13/19 07:57 Dose: 200 mg Documented by: [id number] Admin: 06/12/19 19:55 Dose: 200 mg Documented by: [id number] Admin: 06/12/19 08:51 Dose: 200 mg Documented by: [id number] Admin: 06/11/19 20:39 Dose: 200 mg Documented by: [id number] Multivitamins (Multivitamin Tab) [facility] [place] Stop: 07/12/19 08:59 Last Admin: 06/13/19 07:57 Dose: 1 tab Documented by: [id number] Admin: 06/12/19 08:51 Dose: 1 tab Documented by: [id number] Pantoprazole Sodium (Protonix) 40 mg PO DAILY@0600 [facility]; Protocol Stop: 07/13/19 05:59 Last Admin: 06/13/19 06:05 Dose: 40 mg Documented by: [id number] Polyethylene Glycol (Miralax Powder Packet) 17 gm PO Q6 [facility] Stop: 07/12/19 05:59 Last Admin: 06/13/19 06:05 Dose: 17 gm Documented by: [id number] Admin: 06/12/19 23:11 Dose: 17 gm Documented by: [id number] Admin: 06/12/19 17:41 Dose: 17 gm Documented by: [id number] Admin: 06/12/19 12:15 Dose: 17 gm Documented by: [id number] Admin: 06/12/19 05:52 Dose: 17 gm Documented by: [id number] Senna/Docusate Sodium (Senokot S) 2 tab PO HS [facility] Stop: 07/11/19 20:59 Last Admin: 06/12/19 19:55 Dose: 2 tab Documented by: [id number] Admin: 06/11/19 20:39 Dose: 2 tab Documented by: [id number] Vitamin D (Vitamin D3) 2,000 units PO DAILY [facility] Stop: 07/12/19 08:59 Last Admin: 06/13/19 07:57 Dose: 2,000 units Documented by: [id number] Admin: 06/12/19 08:52 Dose: 2,000 units Documented by: [id number] Discontinued Medications Acetaminophen (Tylenol) 1,000 mg PO PREOP JP Stop: 06/11/19 18:00 Last Admin: 06/11/19 06:56 Dose: 1,000 mg Documented by: [id number] Bacitracin (Bacitracin) Confirm Administered Dose 50,000 units .ROUTE .STK-MED ONE Stop: 06/11/19 06:58 Last Admin: 06/11/19 08:44 Dose: 50,000 units Documented by: [id number] Bupivacaine HCl/Epinephrine Bitart (Sensorcaine/Epinephrine 0.5% Mpf 1:200,000) Confirm Administered Dose 30 ml .ROUTE .STK-MED ONE Stop: 06/11/19 06:58 Last Admin: 06/11/19 08:43 Dose: 30 ml Documented by: [id number] Celecoxib (Celebrex) 200 mg PO PREOP [facility] Stop: 06/11/19 18:00 Last Admin: 06/11/19 06:56 Dose: 200 mg Documented by: [id number] Fentanyl Citrate (Fentanyl Citrate) 50 mcg IV Q5M PRN PRN Reason: PACU Use Only-Pain Stop: 06/11/19 12:42 Last Admin: 06/11/19 10:05 Dose: 100 mcg Documented by: [id number] Admin: 06/11/19 09:58 Dose: 50 mcg Documented by: [id number] Gabapentin (Neurontin) 300 mg PO PREOP JP Stop: 06/11/19 18:00 Last Admin: 06/11/19 06:56 Dose: 300 mg Documented by: [id number] Hydromorphone HCl (Dilaudid) 0.25 mg IV Q5M PRN PRN Reason: PACU Use Only-Pain Stop: 06/11/19 12:42 Last Admin: 06/11/19 10:38 Dose: 0.25 mg Documented by: [id number] Admin: 06/11/19 10:33 Dose: 0.25 mg Documented by: [id number] Admin: 06/11/19 10:28 Dose: 0.25 mg Documented by: [id number] Admin: 06/11/19 10:20 Dose: 0.25 mg Documented by: [id number] Lactated Ringer's (Lr) 1,000 mls @ 15 mls/hr IV .Q24H [facility] Stop: 06/12/19 05:59 Last Infusion: 06/11/19 07:42 Dose: 0 mls/hr Documented by: [id number] Admin: 06/11/19 06:47 Dose: 15 mls/hr Documented by: [id number] Cefazolin Sodium (Ancef 2000mg) 2,000 mg in 15 mls @ 3.75 mls/min IV PREOP JP Stop: 06/11/19 18:00 Last Admin: 06/11/19 07:42 Dose: 3.75 mls/min Documented by: [id number] Cefazolin Sodium (Ancef 2000mg) 2,000 mg in 15 mls @ 3.75 mls/min IV Q8H [facility]; Protocol Stop: 06/11/19 23:48 Last Admin: 06/11/19 23:12 Dose: 3.75 mls/min Documented by: [id number] Admin: 06/11/19 15:40 Dose: 3.75 mls/min Documented by: [id number] Sodium Chloride (Nss 1000ml) 1,000 mls @ 150 mls/hr IV .Q6H40M [facility] Stop: 07/11/19 11:17 Last Admin: 06/12/19 02:05 Dose: Not Given Documented by: [id number] Infusion: 06/12/19 02:05 Dose: 0 mls/hr Documented by: [id number] Admin: 06/11/19 19:38 Dose: 150 mls/hr Documented by: [id number] Infusion: 06/11/19 18:19 Dose: 150 mls/hr Documented by: [id number] Admin: 06/11/19 11:38 Dose: 150 mls/hr Documented by: [id number] Menthol (Nice) Confirm Administered Dose 24 edie BU[place]AL .STK-MED ONE Stop: 06/12/19 09:42 Last Admin: 06/12/19 10:21 Dose: 24 edie Documented by: [id number] Miscellaneous (Floseal Hemostatic Matrix 10ml) 10 ml TOP ONCE ONE Stop: 06/11/19 08:43 Last Admin: 06/11/19 09:34 Dose: 17 ml Documented by: [id number] Pantoprazole Sodium (Protonix) [facility]; Protocol Stop: 07/12/19 08:59 Last Admin: 06/12/19 07:50 Dose: 40 mg Documented by: [id number]
--- NOTE | 2019-06-13 12:53 | Orthopedic Progress Note ---
Date of Service June 13, 2019 Assessment & Plan (1) Spinal stenosis, lumbar region with neurogenic claudication: This time we will continue physical therapy monitor DENIS output anticipate discharge to rehab tomorrow. Present on Admission?: Yes Subjective Patient's back pain is controlled leg symptoms markedly improved. Physical Exam Physical Exam: On exam's patient is in the chair at the bedside. She is good strength testing. Appears comfortable. Results & Data Vital Signs (Past 12 Hours) Vital Signs Temp Pulse Resp BP Pulse Ox 06/13/19 07:49 36.8 C 76 16 111/67 93
[2019-06-13] MEDS: DOCUSATE SODIUM/SENNA 50/8.6MG TAB PO SCH (20:58)
[2019-06-14] MEDS: POLYETHYLENE (MIRALAX) 17 GM PACK PO SCH (02:26)
[2019-06-14] MEDS: PANTOprazole 40 MG TAB PO SCH (05:39)
[2019-06-14] MEDS: HYDROCODONE/ACETAMOPHEN 5/325MG TAB PO PRN ×2 (05:40→13:12)
[2019-06-14] MEDS: MULTIVITAMIN TAB PO SCH (08:30)
[2019-06-14] MEDS: MAGNESIUM OXIDE 400 MG TAB PO SCH (08:31)
[2019-06-14] MEDS: LISINOPRIL/HCTZ 20/12.5MG 1 TAB TAB PO SCH (08:31)
[2019-06-14] MEDS: ASCORBIC ACID 500 MG TAB PO SCH (08:31)
[2019-06-14] MEDS: CHOLECALCIFEROL 1,000 UNITS TAB PO SCH (08:31)
[2019-06-14] MEDS: CeleBREX 200 MG CAP PO SCH (08:32)
--- NOTE | 2019-06-14 10:10 | Discharge Summary ---
Date of Service June 14, 2019 Admission HPI Per Admitting Provider This is an 89-year-old female who presents with chronic persistent back and leg pain after failing extensive course of nonoperative care she is here for surgical intervention. Principal Diagnosis Lumbar spinal stenosis with neurogenic claudication Discharge Data Allergies Allergy/AdvReac Type Severity Reaction Status Date / Time adhesive Allergy Mild SKIN Verified 06/11/19 06:11 IRRITATION - REDNESS/ITCHY Consultations 06/11/19 11:18 Consult Case Management - Discharge Planning Routine Consult Hospitalist Routine Procedures Performed Operation Date: 06/11/19 07:45 Actual Procedures p L3-L5 Decompression and Fusion, Interbody Fusion L3-L4 with Spinal Cord Monitoring(Not Applicable) - Roger Araya DO Ordered Studies 06/11/19 07:45 FL fluoroscopy <1hr Routine FL lumbar spine 2-3V Routine Hospital Course (1) Spinal stenosis, lumbar region with neurogenic claudication: Patient underwent lumbar decompression fusion tolerated as well as taken to the orthopedic floor postoperative. Postop day and when she is up and ambulating well. Progressive postop day #2 DENIS drain decreasing probably. Subsequently postop day #3 was discharged to rehab facility. Discharge orders and instructions from the chart for further review. Total Time Total Time Spent Total Time Spent (In Minutes): 30 minutes Discharge Plan Discharge Items Patient Disposition: Transfer Inpatient Rehab Fac Reason For Visit: LUMBAR SPINAL STENOSIS W/NEUROGENIC CLAUDICATION Discharge Diagnosis: lumbar stenosis Discharge Goals: Decrease discomfort Activity: Per 'Additional Instructions' section Non-emergency contact: Primary Care Provider Call non-emergency contact if: you have any medication questions Follow-up/Referrals: Dinora Stock MD [Primary Care Provider] - Diet: Regular Addtl Provider Instructions: ACTIVITY RECOMMENDATIONS: SELF CARE INSTRUCTIONS AFTER THORACIC/LUMBAR FUSIONS 1. You may walk to your tolerance. It is good exercise for your legs and back. Expect some back and intermittent leg aches and pains. 2. You may perform "counter-top" level activities (make a sandwich, venkat with a project, etc.). 3. No bending or lifting of more than 10 pounds or back twisting of any nature (roll like a log when turning in bed). 4. You may ride in a car for 20-30 minutes at a time. No driving until after your first visit with your doctor. 5. Frequent changes of position and restricting sitting to 30 minutes at a time will help limit the amount of back spasms and stiffness you may experience. 6. You may discontinue the use of ambulatory aids (cane, crutches, etc.) once your strength and confidence allow. 7. You may machine erector the shower and let water strike your incision when you arrive home at least once daily. Do not take a tub bath, sit in a hot tub or go into a swimming pool until after your first recheck in the office. SPECIAL CARE INSTRUCTIONS: VERY IMPORTANT TO READ AND REVIEW A. Your surgical incision has been closed with a cosmetic suture under the skin that will dissolve in about 6 weeks. In 14 days, you can use a pair of clean scissors and cut the suture that is left outside of the skin at the ends of your incision. 1. The small skin tapes can be removed 7 days after surgery if they have not fallen off by that point. 2. You may keep the wound open to air as much as possible to promote healing after post-op day number 5 unless told otherwise by your doctor. 3. If you think the wound looks like it is becoming infected (redness or worsening drainage) and/or you are experiencing fever, chill or worsening back pain and muscle spasms, contact the office so that we may evaluate you as soon as possible. B. Complications are uncommon, but please contact us if you have any signs or symptoms of: 1. wound infection (fever higher than 102.5 degrees F, redness, separation of wound, drainage, or increasing pain from the incision) 2. blood clots in legs (pain, swelling, redness and warmth in legs) 3. urinary tract infection (fever higher than 102.5 degrees F, burning upon urination or increased frequency of urination) 4. nerve problems (inability to walk on your toes or heels, numbness, loss of bowel or bladder control) 5. any other symptoms that concern you C. Please call the office at if you have any concerns or questions about your operation or recovery. D. No smoking! Smoking drastically decreases the chance of a solid fusion. E. Do not take any anti-inflammatory medications (Indocin, Advil, Motrin, Aspirin, Naprosyn, etc.) as these may inhibit the chance of a solid fusion. Tylenol is okay to take for pain. MANAGING PAIN AFTER SPINAL SURGERY 1. Narcotic medication is intended for short-term use and will be provided for surgical pain. Surgical pain usually lasts for a period of 4-6 weeks. Narcotic medication includes Percocet, Vicodin, Darvocet, Tylenol #3 or Lortab. 2. Longer-term pain is more appropriately treated with non-narcotic medication such as Tylenol ES. 3. Muscle spasm is not appropriately treated with narcotics. Muscle relaxers such as Soma, Flexeril or Skelaxin can be used along with Tylenol ES. 4. Remember that we all live with some "aches and pains". This is not unusual or uncommon after an injury or as we get older. a. Back pain is expected and may include muscle spasms for 4 to 6 weeks after surgery. The pain should gradually improve. If the pain worsens for no apparent reason, please contact the office. b. Intermittent leg pain may also be experienced and should not be concerned about unless it worsens for no apparent reason. If so, please contact the office. 5. We will provide appropriate medication within the normal guidelines of their prescribed use. We will also be very cautious and aware of potential abuse and extended duration of patients' medication needs. a. Pain medications are for your comfort and to assist with sleep and rest so that the tissue can heal. They are not provided in order to return to normal activity and should not be used through the day. To do so or worsening pain at night can result from ongoing tissue damage and development of tolerance to the prescribed medicine. 6. Please allow 2-3 days to process refills. Prescriptions will not be mailed but must be picked up at the office. FOLLOW UP VISIT: Keep your scheduled follow-up appointment. Any questions, please call the office at . Prescriptions: New hydrocodone-acetaminophen [[place]] 5-325 mg Tablet 1 - 2 tab PO Q4H PRN (Reason: Pain, Severe) Qty: 30 RF: 0 tramadol 50 mg Tablet 50 mg PO Q4H PRN (Reason: Pain, Moderate) Qty: 30 RF: 0 Continued glucosamine-chondroitin [Osteo Bi-Flex] 250-200 mg Tablet 2 tab PO BID RF: 0 omega 5-amb-qoh-fish oil [Fish Oil] 1,000 mg (120 mg-180 mg) Capsule 1,000 cap PO QAM RF: 0 celecoxib [Celebrex] 200 mg Capsule 200 mg PO QAM RF: 0 Vitamin C 250 mg Tablet,Chewable 500 mg PO QAM RF: 0 docusate sodium 100 mg Capsule 100 mg PO DAILY PRN (Reason: Constipation) RF: 0 cholecalciferol (vitamin D3) [Vitamin D3] 2,000 unit Tablet 2,000 unit PO DAILY RF: 0 hydrocodone-acetaminophen 5-325 mg Tablet 2 tab PO Q6H PRN (Reason: Pain) RF: 0 lisinopril-hydrochlorothiazide 20-12.5 mg Tablet 1 tab PO QAM RF: 0 magnesium oxide 200 mg magnesium Tablet 200 mg PO BID RF: 0 multivitamin Tablet 1 tab PO QAM RF: 0 omeprazole 20 mg Tablet,Delayed Release (Dr/Ec) 20 mg PO QAM RF: 0 Stand-Alone Forms: [facility] Discharge Orders: Discharge Order (Routine); Ordered 06/14/19 Ordered By: Roger Araya Skilled Items Patient informed of condition?: Yes DNR: No Discharge Level of Care: Acute rehab Communicable Disease: No Discharge Prognosis: Stable Admission Data Admit Date/Time: 06/11/19 09:43 Attending Provider: Roger Araya Admit Provider: Roger Araya Primary Care Provider: Dinora Stock Other Providers: Marcial Posada Service: Surgical Services
--- NOTE | 2019-06-14 14:40 | Hospitalist Progress Note ---
Date of Service June 14, 2019 Assessment & Plan (1) Spinal stenosis, lumbar region with neurogenic claudication: POD # 3. Doing well postoperatively. (2) Hypertension: BP's well-controlled. (3) GERD (gastroesophageal reflux disease): Continue PPI. (4) DVT prophylaxis: Per Ortho protocol. (5) Encounter for consultation: Thank you for this consultation. We will follow the patient with you during their hospital stay. My cell # is [phone]. You can reach a member of the [facility] Medicine Team 04/06 via pager @ [phone]. Subjective Recheck for medical management. Patient seen in their room around 10:00. Doing well postoperatively. No chest pain, cough, SOB, nausea, vomiting. Passing flatus and stool. Pain well-controlled. Physical Exam Constitutional: no acute distress Respiratory: no respiratory distress Auscultation: lungs clear to auscultation bilaterally Cardiovascular: Rate/Rhythm: regular rate and regular rhythm Heart Sounds: + murmur (II/ systolic murmur at base); no gallop and no cardiac rub Vessels: no JVD Extremities: + edema (trace pretibial); no calf tenderness Gastrointestinal (Abdomen): normal bowel sounds, soft, nontender, no hepatosplenomegaly Musculoskeletal: TEDS applied Skin: no rashes, warm and dry Psychiatric: Orientation: alert and oriented x 3 Results & Data Vital Signs (Past 12 Hours) Vital Signs Temp Pulse Pulse Pulse Resp BP BP 06/14/19 12:25 36.5 C 64 75 79 18 130/76 109/62 06/14/19 08:36 36.5 C 75 18 130/76 Pulse Ox 06/14/19 12:25 93 06/14/19 08:36 93
== END 2019-06-14 13:37 | DRG 455 ==
LOC: ASU 05:31 → 3E 09:43